=== PATIENT | male | born 1950 | race Caucasian/White ===

== ENCOUNTER 2016-07-19 22:29 | Inpatient (IN) | payer MEDICARE ==
[~2016-07-19] VITALS: Ht 172.7 cm; Wt 76.0 kg
[~2016-07-19 22:29] MED LIST: ALBU.5I NEB; ASPI1TAB69 PO; ATEN25TA PO; ZANTTAB9 PO
[2016-07-19 22:53] VITALS: BP 119/68; PULSE 66; RESP 18; TEMP 98.7; O2SAT 96
[2016-07-19] MEDS ORDERED: SODIUM CHLOR 0.9% 1000 ML INJ 1,000 ML IV SCH (23:07)
[2016-07-19] MEDS ORDERED: SYMB160A INH (23:09)
[2016-07-19] MEDS ORDERED: PRED10 PO (23:09)
[2016-07-19] MEDS ORDERED: CEFD300C PO (23:09)
--- NOTE | 2016-07-19 23:11 | PD ---
HPI Chief Complaint: GI Complaint Time Seen by Provider: 23:02 Travel History International Travel<30 days: No Contact w/Intl Traveler<30days: No Traveled to known affect area: No History of Present Illness HPI Patient 65-year-old male presents emergency Department with generalized abdominal cramping as well as diarrhea for the past 2-3 days. Patient states he was seen by his primary care physician Dr. Acuna last week diagnosed with a COPD exacerbation started on an unknown antibiotic as well as prednisone and Symbicort. He states that his shortness of breath symptoms of completely resolved his left this abdominal cramping as well as diarrhea. Denies bloody or melenous stools. Denies any fever denies any nausea or vomiting. Patient states that he has not had too many diarrhea movements today. PFSH Past Medical History Hx Anticoagulant Therapy: Yes (ASA) Arthritis: No Blood Disorders: No Heart Rhythm Problems: Yes (HX OF PALPITATIONS) Cancer: No Cardiac Catheterization: No Cardiovascular Problems: Yes (HTN) High Cholesterol: Yes Chemotherapy: No Chest Pain: No Congestive Heart Failure: No COPD: Yes Cerebrovascular Accident: No Diabetes: No Endocrine: No Genitourinary: No Headaches: Yes Hypertension: Yes Immune Disorder: No Musculoskeletal: Yes Neurologic: Yes Psychiatric: No Respiratory: Yes (COPD) Immunizations Current: Yes Myocardial Infarction: No Radiation Therapy: No Seizures: No Past Surgical History Abdominal Surgery: Yes (PARTIAL COLON REMOVAL/bladder repair 2005) AICD: No Coronary Artery Bypass Graft: No Eye Surgery: Yes (RIGHT EYE CATARACT AUGUST 2014) Joint Replacement: No Pacemaker: No Other Surgery: No Social History Alcohol Use: No Tobacco Use: No Substance Use: No Allergies-Medications (Allergen,Severity, Reaction): Coded Allergies: Metoprolol (Verified Allergy, Intermediate, 07/19/16) heart palpitations *MDRO Multi-Drug Resistant Organism (Verified Adverse Reaction, Unknown, ) 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 Read complete instructions carefully before using. Zantac 75 (Ranitidine HCl) 75 Mg Tab 75 Mg PO DAILY Take 30 to 60 minutes before eating food or drinking beverages that cause heartburn. Atenolol 25 Mg Tab 25 Mg PO DAILY Aspirin 81 Mg Tabdr 81 Mg PO DAILY Review of Systems Except as stated in HPI: all other systems reviewed are Neg Physical Exam Narrative GENERAL: Well-developed well-nourished no apparent distress. SKIN: No rash no wound. HEAD: Atraumatic. Normocephalic. EYES: Pupils equal and round. No scleral icterus. No injection or drainage. ENT: No nasal bleeding or discharge. Mucous membranes pink and moist. NECK: Trachea midline. No JVD. CARDIOVASCULAR: Regular rate and rhythm. No murmur appreciated. RESPIRATORY: No accessory muscle use. Clear to auscultation. Breath sounds equal bilaterally. GASTROINTESTINAL: Abdomen soft, non-tender, nondistended. Hepatic and splenic margins not palpable. Midline abdominal scar well healed. No rebound no percussive tenderness, so psoas and obturator signs negative. MUSCULOSKELETAL: No obvious deformities. No clubbing. No cyanosis. No edema. NEUROLOGICAL: Awake and alert. No obvious cranial nerve deficits. Motor grossly within normal limits. Normal speech. PSYCHIATRIC: Appropriate mood and affect; insight and judgment normal. Data Data Last Documented VS Vital Signs Date Time Temp Pulse Resp B/P Pulse Ox O2 Delivery O2 Flow Rate FiO2 07/19/16 23:23 76 18 142/78 94 07/19/16 22:53 98.7 Room Air Orders Complete Blood Count With Diff (07/19/16 23:07) Comprehensive Metabolic Panel (07/19/16 23:07) Lipase (07/19/16 23:07) Urinalysis - C+S If Indicated (07/19/16 23:07) Iv Access Insert/Monitor (07/19/16 23:07) Ecg Monitoring (07/19/16 23:07) Oximetry (07/19/16 23:07) Sodium Chlor 0.9% 1000 Ml Inj (Ns 1000 M (07/19/16 23:07) Sodium Chloride 0.9% Flush (Ns Flush) (07/19/16 23:15) C Diff Toxin Pcr (07/19/16 23:44) Ct Abd/Pel W Iv Contrast(Rout) (07/20/16 ) Lactic Acid (07/20/16 00:20) Dicyclomine Inj (Bentyl Inj) (07/20/16 01:00) Ondansetron Inj (Zofran Inj) (07/20/16 01:00) Iohexol 350 Inj (Omnipaque 350 Inj) (07/20/16 01:16) Sodium Chlor 0.9% 1000 Ml Inj (Ns 1000 M (07/20/16 01:45) Admit Order (Ed Use Only) (07/20/16 01:54) Admit To Inpatient (07/20/16 ) Vital Signs (Adult) Q4H (07/20/16 01:53) Activity Oob With Assistance (07/20/16 01:53) Sodium Chlor 0.9% 1000 Ml Inj (Ns 1000 M (07/20/16 01:53) Sodium Chloride 0.9% Flush (Ns Flush) (07/20/16 02:00) Sodium Chloride 0.9% Flush (Ns Flush) (07/20/16 09:00) Acetaminophen (Tylenol) (07/20/16 02:00) Ondansetron Inj (Zofran Inj) (07/20/16 02:00) Magnesium Hydroxide Liq (Milk Of Magnesi (07/20/16 02:00) Basic Metabolic Panel (Bmp) (07/21/16 06:00) Complete Blood Count With Diff (07/21/16 06:00) Scd Bilateral/Knee High CONSTANTINE.BID (07/20/16 01:53) Naloxone Inj (Narcan Inj) (07/20/16 02:00) Inpatient Certification (07/20/16 ) Labs Laboratory Tests Test 07/19/16 07/20/16 23:15 00:28 White Blood Count 19.6 TH/MM3 Red Blood Count 5.28 MIL/MM3 Hemoglobin 16.1 GM/DL Hematocrit 45.8 % Mean Corpuscular Volume 86.7 FL Mean Corpuscular Hemoglobin 30.5 PG Mean Corpuscular Hemoglobin 35.2 % Concent Red Cell Distribution Width 13.5 % Platelet Count 271 TH/MM3 Mean Platelet Volume 9.0 FL Neutrophils (%) (Auto) 83.8 % Lymphocytes (%) (Auto) 10.8 % Monocytes (%) (Auto) 4.6 % Eosinophils (%) (Auto) 0.6 % Basophils (%) (Auto) 0.2 % Neutrophils # (Auto) 16.4 TH/MM3 Lymphocytes # (Auto) 2.1 TH/MM3 Monocytes # (Auto) 0.9 TH/MM3 Eosinophils # (Auto) 0.1 TH/MM3 Basophils # (Auto) 0.0 TH/MM3 CBC Comment DIFF FINAL Differential Comment Sodium Level 136 MEQ/L Potassium Level 5.1 MEQ/L Chloride Level 94 MEQ/L Carbon Dioxide Level 29.9 MEQ/L Anion Gap 12 MEQ/L Blood Urea Nitrogen 19 MG/DL Creatinine 1.30 MG/DL Estimat Glomerular Filtration 55 ML/MIN Rate Random Glucose 104 MG/DL Calcium Level 10.7 MG/DL Total Bilirubin 0.9 MG/DL Aspartate Amino Transf 34 U/L (AST/SGOT) Alanine Aminotransferase 34 U/L (ALT/SGPT) Alkaline Phosphatase 72 U/L Total Protein 8.9 GM/DL Albumin 4.5 GM/DL Lipase 69 U/L Lactic Acid Level 1.6 mmol/L [facility] Medical Decision Making Medical Screen Exam Complete: Yes Emergency Medical Condition: Yes Differential Diagnosis C. difficile colitis, colitis, gastritis, gastric enteritis, small bowel obstruction. Narrative Course 65-year-old male presents emergency Department with diarrhea in the setting of her recent antibiotic prescription. Patient while in the emergency department had one episode of emesis. He has a white count of 19,000 prompting CAT scan ordered. CAT scan pending at current. Patient will be discussed with Dr. Carrington at 0100 to follow-up CAT scan and disposition properly. Patient interventions thus far are Bobby Gary, normal saline 1 L IV. Darrell Saavedra MD Jul 19, 2016 23:11
[2016-07-19 23:23] VITALS: BP 142/78; PULSE 76; RESP 18; O2SAT 94
[2016-07-19 23:35] LABS: AUTOMATED NEUTROPHIL # 16.4 TH/MM3 (1.8-7.7); BASOPHIL % 0.2 % (0.0-2.0); EOSINOPHIL # 0.1 TH/MM3 (0-0.4); EOSINOPHIL % 0.6 % (0.0-4.0); HEMATOCRIT 45.8 % (39.0-51.0); HEMO FLAGS DIFF FINAL; LYMPH % 10.8 % (9.0-44.0); LYMPHOCYTE # 2.1 TH/MM3 (1.0-4.8); MEAN CELL VOLUME 86.7 FL (80.0-100.0); MEAN CORPUSCULAR HEMOGLOBIN 30.5 PG (27.0-34.0); MEAN CORPUSCULAR HGB CONC 35.2 % (32.0-36.0); MONO % 4.6 % (0.0-8.0); NEUT % 83.8 % (16.0-70.0); PLATELET COUNT 271 TH/MM3 (150-450); RED BLOOD COUNT 5.28 MIL/MM3 (4.50-5.90); RED CELL DISTRIBUTION WIDTH 13.5 % (11.6-17.2); WHITE BLOOD COUNT 19.6 TH/MM3 (4.0-11.0)
[2016-07-19] MEDS: SODIUM CHLORIDE 0.9% FLUSH 10 ML FLUSH IV FLUSH PRN (23:36)
[2016-07-20 00:08] LABS: ALKALINE PHOSPHATASE 72 U/L (45-117); ALT (GPT) 34 U/L (12-78); ANION GAP 12 MEQ/L (5-15); AST (GOT) 34 U/L (15-37); BICARBONATE 29.9 MEQ/L (21.0-32.0); BLOOD UREA NITROGEN 19 MG/DL (7-18); CHLORIDE 94 MEQ/L (98-107); GLOMERULAR FILTRATION RATE 55 ML/MIN (>89); SODIUM (NA) 136 MEQ/L (136-145); TOTAL BILIRUBIN ADULT 0.9 MG/DL (0.2-1.0)
[2016-07-20 00:10] LABS: POTASSIUM 5.1 MEQ/L (3.5-5.1)
[2016-07-20] MEDS: SODIUM CHLORIDE 0.9% FLUSH 10 ML FLUSH IV FLUSH PRN (00:57)
[2016-07-20] MEDS ORDERED: ONDANSETRON HCL 4 MG/2 ML VIAL IV PUSH ONE (01:00)
[2016-07-20] MEDS ORDERED: DICYCLOMINE HCL 20 MG/2 ML VIAL IM ONE (01:00)
[2016-07-20] MEDS ORDERED: IOHEXOL 350 MG/ML 10 ML VIAL (for RAD DIAG) IV ONE (01:16)
--- NOTE | 2016-07-20 01:18 | PD ---
Physical Exam Date Seen by Provider: Jul 20, 2016 Time Seen by Provider: 01:16 Narrative The patient is a 65 year-old male was initially evaluated by the previous physician, Dr. Saavedra. Please refer to the initial history, physical, diagnostic evaluation, treatment modality plan. The patient was signed out at [address] of the abdomen and pelvis pending. Data Data Last Documented VS Vital Signs Date Time Temp Pulse Resp B/P Pulse Ox O2 Delivery O2 Flow Rate FiO2 07/19/16 23:23 76 18 142/78 94 07/19/16 22:53 98.7 Room Air Orders Complete Blood Count With Diff (07/19/16 23:07) Comprehensive Metabolic Panel (07/19/16 23:07) Lipase (07/19/16 23:07) Urinalysis - C+S If Indicated (07/19/16 23:07) Iv Access Insert/Monitor (07/19/16 23:07) Ecg Monitoring (07/19/16 23:07) Oximetry (07/19/16 23:07) Sodium Chlor 0.9% 1000 Ml Inj (Ns 1000 M (07/19/16 23:07) Sodium Chloride 0.9% Flush (Ns Flush) (07/19/16 23:15) C Diff Toxin Pcr (07/19/16 23:44) Ct Abd/Pel W Iv Contrast(Rout) (07/20/16 ) Lactic Acid (07/20/16 00:20) Dicyclomine Inj (Bentyl Inj) (07/20/16 01:00) Ondansetron Inj (Zofran Inj) (07/20/16 01:00) Iohexol 350 Inj (Omnipaque 350 Inj) (07/20/16 01:16) Sodium Chlor 0.9% 1000 Ml Inj (Ns 1000 M (07/20/16 01:45) Labs Laboratory Tests Test 07/19/16 07/20/16 23:15 00:28 White Blood Count 19.6 TH/MM3 Red Blood Count 5.28 MIL/MM3 Hemoglobin 16.1 GM/DL Hematocrit 45.8 % Mean Corpuscular Volume 86.7 FL Mean Corpuscular Hemoglobin 30.5 PG Mean Corpuscular Hemoglobin 35.2 % Concent Red Cell Distribution Width 13.5 % Platelet Count 271 TH/MM3 Mean Platelet Volume 9.0 FL Neutrophils (%) (Auto) 83.8 % Lymphocytes (%) (Auto) 10.8 % Monocytes (%) (Auto) 4.6 % Eosinophils (%) (Auto) 0.6 % Basophils (%) (Auto) 0.2 % Neutrophils # (Auto) 16.4 TH/MM3 Lymphocytes # (Auto) 2.1 TH/MM3 Monocytes # (Auto) 0.9 TH/MM3 Eosinophils # (Auto) 0.1 TH/MM3 Basophils # (Auto) 0.0 TH/MM3 CBC Comment DIFF FINAL Differential Comment Sodium Level 136 MEQ/L Potassium Level 5.1 MEQ/L Chloride Level 94 MEQ/L Carbon Dioxide Level 29.9 MEQ/L Anion Gap 12 MEQ/L Blood Urea Nitrogen 19 MG/DL Creatinine 1.30 MG/DL Estimat Glomerular Filtration 55 ML/MIN Rate Random Glucose 104 MG/DL Calcium Level 10.7 MG/DL Total Bilirubin 0.9 MG/DL Aspartate Amino Transf 34 U/L (AST/SGOT) Alanine Aminotransferase 34 U/L (ALT/SGPT) Alkaline Phosphatase 72 U/L Total Protein 8.9 GM/DL Albumin 4.5 GM/DL Lipase 69 U/L Lactic Acid Level 1.6 mmol/L [facility] Medical Record Reviewed: Yes Supervised Visit with HARISH: No Interpretation(s) Laboratory Tests Test 07/19/16 07/20/16 23:15 00:28 White Blood Count 19.6 TH/MM3 Red Blood Count 5.28 MIL/MM3 Hemoglobin 16.1 GM/DL Hematocrit 45.8 % Mean Corpuscular Volume 86.7 FL Mean Corpuscular Hemoglobin 30.5 PG Mean Corpuscular Hemoglobin 35.2 % Concent Red Cell Distribution Width 13.5 % Platelet Count 271 TH/MM3 Mean Platelet Volume 9.0 FL Neutrophils (%) (Auto) 83.8 % Lymphocytes (%) (Auto) 10.8 % Monocytes (%) (Auto) 4.6 % Eosinophils (%) (Auto) 0.6 % Basophils (%) (Auto) 0.2 % Neutrophils # (Auto) 16.4 TH/MM3 Lymphocytes # (Auto) 2.1 TH/MM3 Monocytes # (Auto) 0.9 TH/MM3 Eosinophils # (Auto) 0.1 TH/MM3 Basophils # (Auto) 0.0 TH/MM3 CBC Comment DIFF FINAL Differential Comment Sodium Level 136 MEQ/L Potassium Level 5.1 MEQ/L Chloride Level 94 MEQ/L Carbon Dioxide Level 29.9 MEQ/L Anion Gap 12 MEQ/L Blood Urea Nitrogen 19 MG/DL Creatinine 1.30 MG/DL Estimat Glomerular Filtration 55 ML/MIN Rate Random Glucose 104 MG/DL Calcium Level 10.7 MG/DL Total Bilirubin 0.9 MG/DL Aspartate Amino Transf 34 U/L (AST/SGOT) Alanine Aminotransferase 34 U/L (ALT/SGPT) Alkaline Phosphatase 72 U/L Total Protein 8.9 GM/DL Albumin 4.5 GM/DL Lipase 69 U/L Lactic Acid Level 1.6 mmol/L Differential Diagnosis Differential diagnosis includes colitis, enteritis, infectious diarrhea, inflammatory diarrhea, C. difficile, dehydration, electrolyte abnormality, diverticulitis, abscess. Narrative Course The patient was initially evaluated by the previous physician, Dr. Saavedra. Please refer to the initial history, physical, diagnostic evaluation, and treatment modality plan. The patient was signed out at [address] of the abdomen and pelvis pending after patient's white count was noted to be 19.6 knee complain of diarrhea. The patient does have a history of C. difficile, C. difficile was ordered by the previous physician, Dr. Saavedra. However, the patient had no subsequent diarrhea in the emergency department while Dr. Saavedra was the attending physician. CT of the abdomen and pelvis reveals a ventral hernia with what appears to be a small bowel obstruction with dilated loops of bowel. The patient states his last normal bowel movement was several days ago, he is not passed gas and a day and a half. The patient has had previous abdominal surgery for a fistula, but does not think he has had a small bowel obstruction in the past. The patient's primary physician is Mandy PLEITEZ , he cannot recall the name of the head physician at the group. The patient will be kept nothing by mouth, placed on IV fluids, and admitted to the medical service. If the patient's small bowel obstruction does not reduce on its own with a large ventral hernia, he will need surgical evaluation/intervention. Physician Communication Physician Communication The on-call medical service was paged for admission. I discussed the patient with Dr. Vigil who agrees with admission. Diagnosis Primary Impression: Small bowel obstruction Admitting Information Admitting Physician Requests: Admit Condition: Stable Xavier Carrington MD Jul 20, 2016 01:18
--- NOTE | 2016-07-20 01:27 | RADRPT ---
EXAM DATE/TIME: 07/20/2016 01:05 [facility] COMPARISON: CT ABDOMEN & PELVIS W CONTRAST, August 15, 2014, 20:35. INDICATIONS : Abdomen pain with diarrhea. IV CONTRAST: 95 cc Omnipaque 350 (iohexol) IV ORAL CONTRAST: No oral contrast ingested. RADIATION DOSE: 9.97 CTDIvol (mGy) MEDICAL HISTORY : Cardiovascular disease. Hypertension. Chronic obstructive pulmonary disease. SURGICAL HISTORY : Colon resection. ENCOUNTER: Initial ACUITY: 1 day PAIN SCALE: 10/10 LOCATION: Bilateral abdomen TECHNIQUE: Volumetric scanning of the abdomen and pelvis was performed. Using automated exposure control and ad justment of the mA and/or kV according to patient size, radiation dose was kept as low as reasonably achievable to obtain optimal diagnostic quality images. FINDINGS: LOWER LUNGS: The visualized lower lungs are clear. LIVER: Homogeneous density without lesion. There is no dilation of the biliary tree. No calcified gallston es. SPLEEN: Normal size without lesion. PANCREAS: Within normal limits. KIDNEYS: Normal in size and shape. There is no mass, stone or hydronephrosis. ADRENAL GLANDS: Within normal limits. VASCULAR: There is no aortic aneurysm. BOWEL/MESENTERY: The stomach, small bowel, and colon demonstrate no acute abnormality. There is no free intraperitone al air or fluid. ABDOMINAL WALL: Again there is an anterior midline suprapubic ventral hernia containing a loop of small bowel similar to 2015 with the rectus diastases approximately 2.9 cm across. It contains a loop of small bowel. T he small bowel entering the hernia is dilated and fluid-filled with a number of loops measuring 4.2 c m across. The exiting loop of small bowel is nondilated and non-fluid filled. The contents of the sma ll bowel loop inside the hernia has more stool density concerning for obstruction. There is a tiny am ount of fluid in the dependent portion of the hernia. The total hernia measures 5.0 x 5.1 cm across. RETROPERITONEUM: There is no lymphadenopathy. BLADDER: No wall thickening or mass. Small amount of free fluid in the pelvis REPRODUCTIVE: Within normal limits. INGUINAL: There is no lymphadenopathy or hernia. MUSCULOSKELETAL: Within normal limits for patient age. CONCLUSION: Anterior midline suprapubic ventral hernia similar to 2015 with the rectus diastases approximately 2. 9 cm across. It contains a loop of small bowel. The small bowel proximal to the hernia is dilated an d fluid-filled with a number of loops measuring 4.2 cm across. The exiting loop of small bowel is non dilated and non-fluid filled. The contents of the small bowel loop inside the hernia has more stool d ensity concerning for obstruction. There is a tiny amount of fluid in the dependent portion of the he rnia. The total hernia measures 5.0 x 5.1 cm across. There is not a significant amount of inflammatio n or bowel wall thickening to confirm bowel wall inflammation but the diameters of the small bowel w ithin the peritoneal cavit is diagnostic for an obstructing hernia. Jhonatan Collins MD on July 20, 2016 at 1:20 Board Certified Radiologist. This report was verified electronically.
[2016-07-20] MEDS ORDERED: SODIUM CHLOR 0.9% 1000 ML INJ 1,000 ML IV SCH (01:45)
[2016-07-20] MEDS ORDERED: MAGNESIUM HYDROXIDE SUSP 30 ML CUP PO PRN (02:00)
[2016-07-20] MEDS ORDERED: NALOXONE HCL 0.4 MG/ML AMP IV PRN (02:00)
[2016-07-20] MEDS ORDERED: SODIUM CHLORIDE 0.9% FLUSH 10 ML FLUSH IV FLUSH PRN (02:00)
[2016-07-20] MEDS ORDERED: ACETAMINOPHEN 325 MG TAB PO PRN (02:00)
[2016-07-20] MEDS ORDERED: ONDANSETRON HCL 4 MG/2 ML VIAL IVP PRN (02:00)
--- NOTE | 2016-07-20 02:09 | HHI.HP ---
[facility] Service [facility] Primary Care Physician PRICILLA Michelle Admission Diagnosis small bowel obstruction, abdominal pain Diagnoses: (1) Small bowel obstruction (2) Leukocytosis (3) Acute renal insufficiency (4) Hypercalcemia (5) Diarrhea Chief Complaint: Diarrhea and abdominal pain Travel History International Travel<30 Days: No Contact w/Intl Traveler <30 Da: No Traveled to Known Affected Are: No History of Present Illness Mr. Hernandez is a 65-year-old male with a past medical history of COPD and hypertension who presented to the emergency room on 07/19/2016 complaining of severe abdominal pain and diarrhea. Abdomen/pelvis CT shows obstructing ventral hernia containing a loop of small bowel dilated and fluid-filled. The patient is seen in the emergency room. He states that he received antibiotics for COPD exacerbation last Sunday which made him dizzy. He was only able to take one dose of Levaquin. He followed up on Sunday and was placed on Cefdinir. He states that he has had diarrhea since being started on Cefzil. He describes the diarrhea as loose stools accompanied by abdominal cramping occurring more than 10 times per day; not watery. He reports accompanying nausea without vomiting, chills without fevers. He denies having blood in his stool. Review of Systems Except as stated in HPI: all other systems reviewed are Neg Past Family Social History Past Medical History COPD - symbicort and albuterol nebulizer Hypertension . Past Surgical History Colon Fistula Repair 2005 . Reported Medications Reported Meds & Active Scripts Active Reported Cefdinir 300 Mg Cap 300 Mg PO BID Symbicort Inh (Budesonide/Formoterol Fumarate) 160-4.5 Mcg/Act Aero 1 Puff INH Q12HR Albuterol Neb (Albuterol Sulfate) 2.5 Mg/0.5 Ml Neb 2.5 Mg NEB ONCE Note: The Albuterol Sulfate Inhalation Solution is concentrated and must be diluted. Read complete instructions carefully before using. Zantac 75 (Ranitidine HCl) 75 Mg Tab 75 Mg PO DAILY Take 30 to 60 minutes before eating food or drinking beverages that cause heartburn. Atenolol 25 Mg Tab 25 Mg PO DAILY Aspirin 81 Mg Tabdr 81 Mg PO DAILY . Allergies: Coded Allergies: Metoprolol (Verified Allergy, Intermediate, 07/19/16) heart palpitations *MDRO Multi-Drug Resistant Organism (Verified Allergy, Unknown, 01/31/16) MRSA Active Ordered Medications Current Medications Sodium Chloride (NS 1000 ml Inj) 1,000 ml @ 1,000 mls/hr Q1H IV Last administered on 07/19/16 23:35; Start 07/19/16 at 23:07; Stop 07/20/16 at 00:06 ; Status DC Sodium Chloride (NS Flush) 2 ml UNSCH PRN IV FLUSH FLUSH AFTER USING IV ACCESS Last administered on 07/20/16 00:57; Start 07/19/16 at 23:15; Stop 07/20/16 at 02:03; Status DC Dicyclomine HCl (Bentyl Inj) 20 mg ONCE ONCE IM Last administered on 00:56; Start 07/20/16 at 01:00; Stop 07/20/16 at 01:01; Status DC Ondansetron HCl (Zofran Inj) 4 mg ONCE ONCE IV PUSH Last administered on 00:57; Start 07/20/16 at 01:00; Stop 07/20/16 at 01:01; Status DC Iohexol 95 ml 95 ml STK-MED ONCE IV Last administered on 07/20/16 01:16; Start 07/20/16 at 01:16; Stop 07/20/16 at 01:17; Status DC Sodium Chloride 1,000 ml @ 100 mls/hr Q10H IV ; Start 07/20/16 at 01:45; Stop 07/20/16 at 02:05; Status DC Sodium Chloride (NS 1000 ml Inj) 1,000 ml @ 100 mls/hr Q10H IV ; Start at 01:53 Sodium Chloride (NS Flush) 2 ml UNSCH PRN IV FLUSH FLUSH AFTER USING IV ACCESS ; Start 07/20/16 at 02:00 Sodium Chloride (NS Flush) 2 ml BID IV FLUSH ; Start 07/20/16 at 09:00 Acetaminophen (Tylenol) 650 mg Q4H PRN PO Fever, headache, Pain 1-4; Start at 02:00 Ondansetron HCl (Zofran Inj) 4 mg Q6H PRN IVP NAUSEA OR VOMITING; Start at 02:00 Magnesium Hydroxide (Milk Of Elsy White) 30 ml Q12H PRN PO CONSTIPATION; Start 07/20/16 at 02:00 Naloxone HCl (Narcan Inj) 0.4 mg UNSCH PRN IV SEE LABEL COMMENTS; Start at 02:00 . Family History Mother from breast cancer . Social History Tobacco: Denies Alcohol: Denies . Physical Exam Vital Signs Vital Signs Date Time Temp Pulse Resp B/P Pulse Ox O2 Delivery O2 Flow Rate FiO2 07/19/16 23:23 76 18 142/78 94 07/19/16 22:53 98.7 66 18 119/68 96 Room Air Physical Exam GENERAL: This is a pleasant older male patient, in no apparent distress. SKIN: No rashes, ecchymoses or lesions. Cool and dry. HEAD: Atraumatic. Normocephalic. EYES: No scleral icterus. No injection or drainage. ENT: Nose without bleeding, purulent drainage. NECK: Trachea midline. No JVD or lymphadenopathy. CARDIOVASCULAR: Regular rate and rhythm without murmurs, gallops, or rubs. RESPIRATORY: Breath sounds equal bilaterally. No wheezes or rhonchi. Mild bibasilar crackles; moderate air entry. GASTROINTESTINAL: Right side without bowel sounds; left side with normally active bowel sounds. Abdomen soft, tender on right side of abdomen with palpation, nondistended. No guarding. MUSCULOSKELETAL: Extremities without clubbing, cyanosis, or edema. No calf tenderness. NEUROLOGICAL: Awake and alert. Motor and sensory grossly within normal limits. Normal speech. . Laboratory Laboratory Tests Test 07/19/16 07/20/16 23:15 00:28 White Blood Count 19.6 Red Blood Count 5.28 Hemoglobin 16.1 Hematocrit 45.8 Mean Corpuscular Volume 86.7 Mean Corpuscular Hemoglobin 30.5 Mean Corpuscular Hemoglobin 35.2 Concent Red Cell Distribution Width 13.5 Platelet Count 271 Mean Platelet Volume 9.0 Neutrophils (%) (Auto) 83.8 Lymphocytes (%) (Auto) 10.8 Monocytes (%) (Auto) 4.6 Eosinophils (%) (Auto) 0.6 Basophils (%) (Auto) 0.2 Neutrophils # (Auto) 16.4 Lymphocytes # (Auto) 2.1 Monocytes # (Auto) 0.9 Eosinophils # (Auto) 0.1 Basophils # (Auto) 0.0 CBC Comment DIFF FINAL Differential Comment Sodium Level 136 Potassium Level 5.1 Chloride Level 94 Carbon Dioxide Level 29.9 Anion Gap 12 Blood Urea Nitrogen 19 Creatinine 1.30 Estimat Glomerular Filtration 55 Rate Random Glucose 104 Calcium Level 10.7 Total Bilirubin 0.9 Aspartate Amino Transf 34 (AST/SGOT) Alanine Aminotransferase 34 (ALT/SGPT) Alkaline Phosphatase 72 Total Protein 8.9 Albumin 4.5 Lipase 69 Lactic Acid Level 1.6 Result Diagram: 07/19/16 2315 07/19/16 2315 Imaging Last Impressions Abdomen/Pelvis CT 07/20/16 0000 Signed Impressions: Service Date/Time: , July 20, 2016 01:05 - CONCLUSION: Anterior midline suprapubic ventral hernia similar to 2015 with the rectus diastases approximately 2.9 cm across. It contains a loop of small bowel. The small bowel proximal to the hernia is dilated and fluid-filled with a number of loops measuring 4.2 cm across. The exiting loop of small bowel is nondilated and non-fluid filled. The contents of the small bowel loop inside the hernia has more stool density concerning for obstruction. There is a tiny amount of fluid in the dependent portion of the hernia. The total hernia measures 5.0 x 5.1 cm across. There is not a significant amount of inflammation or bowel wall thickening to confirm bowel wall inflammation but the diameters of the small bowel within the peritoneal cavit is diagnostic for an obstructing hernia. Jhonatan Collins MD . Assessment and Plan Problem List: (1) Small bowel obstruction ICD Code: K56.69 Status: Acute (2) Leukocytosis ICD Code: D72.829 Status: Acute (3) Acute renal insufficiency ICD Code: N28.9 Status: Acute (4) Hypercalcemia ICD Code: E83.52 Status: Acute (5) Diarrhea ICD Code: R19.7 Status: Acute Assessment and Plan Mr. Hernandez is a 65-year-old male with a past medical history of COPD and hypertension who presented to the emergency room on 07/19/2016 complaining of severe abdominal pain and diarrhea. Abdomen/pelvis CT shows obstructing ventral hernia containing a loop of small bowel dilated and fluid-filled. Small bowel obstruction - consult general surgery - clear liquid diet - Morphine 2 mg IV every 3 hours as needed for pain - IV fluid hydration with normal saline at 100 cc per hour - Zofran 4 mg IV push every 6 hours as needed for nausea/vomiting Leukocytosis - likely secondary to prednisone vs stress vs infection - WBC 19.6 with neutrophilia - Repeat CBC in a.m. and follow trends and white blood count Mild renal insufficiency likely secondary to dehydration - IV fluid hydration as above - Repeat BMP in a.m. and follow trends in renal indices - Avoid nephrotoxins Hypercalcemia, mild - Calcium 10.7 on admission - may be secondary to hemoconcentration - Recheck BMP in a.m. and follow trends and calcium levels Diarrhea on antibiotics recently - check stool for c. diff DVT prophylaxis - SCDs Written by Rupal Montilla, acting as scribe for Dr. Vigil on 07/20/16 at 02:03. This note was transcribed by scribe PRICILLA Young. I, Dr. Jose Manuel Vigil personally performed the history, physical exam, and medical decision making; and confirmed the accuracy of the information in the transcribed note. Authenticated by Dr. Jose Manuel Vigil on 07/20/16 at 08:43. . Discussed Condition With ER physician, patient, patient's grandson present at the bedside . Physician Certification 2 Midnight Certification Type: Admission for Inpatient Services Order for Inpatient Services The services are ordered in accordance with Medicare regulations or non- Medicare payer requirements, as applicable. In the case of services not specified as inpatient-only, they are appropriately provided as inpatient services in accordance with the 2-midnight benchmark. Estimated LOS (days): 3 days is the estimated time the patient will need to remain in the hospital, assuming treatment plan goals are met and no additional complications. Post-Hospital Plan: Not yet determined Rupal Montilla Jul 20, 2016 02:09 Daphnie Vigil DO Jul 20, 2016 08:44
[2016-07-20 02:40] VITALS: BP 131/78; PULSE 87; RESP 16; O2SAT 96
[2016-07-20] MEDS: SODIUM CHLOR 0.9% 1000 ML INJ 1,000 ML IV SCH ×3 (02:40→21:30)
[2016-07-20] MEDS: MORPHINE SULFATE 4 MG/ML INJ IV PUSH PRN ×7 (02:44→23:46)
[2016-07-20 03:06] LABS: BLOOD, URINE NEG (NEG); COMMENT (UR) CULT NOT INDICATED; CULTURE IF INDICATED CULT NOT INDICATED; GLUCOSE,URINE NEG (NEG); KETONE, URINE NEG (NEG); MUCUS URINE FEW /lpf (OCC); NITRITE,URINE NEG (NEG); SQUAMOUS EPITHELIAL CELL URINE <1 /hpf (0-5); URINE COLOR YELLOW (YELLW/STRAW)
[2016-07-20 07:11] VITALS: BP 154/82; PULSE 74; RESP 18; TEMP 97.8; O2SAT 95
[2016-07-20] MEDS ORDERED: RESP: ALBUTEROL 1.25 MG/3 ML NEB (PRN) NEB (07:45)
--- NOTE | 2016-07-20 07:45 | HHI.PR ---
Subjective Remarks in no acute distress. has mild abdominal pain and nausea. no emesis. no fever. Objective Vitals Vital Signs Date Time Temp Pulse Resp B/P Pulse Ox O2 Delivery O2 Flow Rate FiO2 07/20/16 07:11 97.8 74 18 154/82 95 07/20/16 03:10 14 07/20/16 02:40 87 16 131/78 96 Room Air 07/19/16 23:23 76 18 142/78 94 07/19/16 22:53 98.7 66 18 119/68 96 Room Air I/O 07/19/16 07/19/16 07/19/16 07/20/16 07/20/16 07/20/16 07:00 15:00 23:00 07:00 15:00 23:00 Intake Total 120 ml Balance 120 ml Intake Oral 120 ml Result Diagram: 07/19/16 2315 07/19/16 2315 Imaging Last Impressions Abdomen/Pelvis CT 07/20/16 0000 Signed Impressions: Service Date/Time: July 01:05 - CONCLUSION: Anterior midline suprapubic ventral hernia similar to 2015 with the rectus diastases approximately 2.9 cm across. It contains a loop of small bowel. The small bowel proximal to the hernia is dilated and fluid-filled with a number of loops measuring 4.2 cm across. The exiting loop of small bowel is nondilated and non-fluid filled. The contents of the small bowel loop inside the hernia has more stool density concerning for obstruction. There is a tiny amount of fluid in the dependent portion of the hernia. The total hernia measures 5.0 x 5.1 cm across. There is not a significant amount of inflammation or bowel wall thickening to confirm bowel wall inflammation but the diameters of the small bowel within the peritoneal cavit is diagnostic for an obstructing hernia. Jhonatan Collins MD Objective Remarks GENERAL: This is a well-nourished, well-developed patient, in no apparent distress. CARDIOVASCULAR: Regular rate and regular rhythm without murmurs, gallops, or rubs. RESPIRATORY: Clear to auscultation. Breath sounds equal bilaterally. No wheezes , rales, or rhonchi. GASTROINTESTINAL: Abdomen soft, non-tender, mildly distended. Normal, active bowel sounds MUSCULOSKELETAL: Extremities without clubbing, cyanosis, or edema. NEURO: Alert & Oriented x4 to person, place, time, situation. Moves all ext x4 Procedures none Medications and IVs Current Medications Sodium Chloride (NS 1000 ml Inj) 1,000 ml @ 1,000 mls/hr Q1H IV Last administered on 07/19/16 23:35; Start 07/19/16 at 23:07; Stop 07/20/16 at 00:06 ; Status DC Sodium Chloride (NS Flush) 2 ml UNSCH PRN IV FLUSH FLUSH AFTER USING IV ACCESS Last administered on 07/20/16 00:57; Start 07/19/16 at 23:15; Stop 07/20/16 at 02:03; Status DC Dicyclomine HCl (Bentyl Inj) 20 mg ONCE ONCE IM Last administered on 00:56; Start 07/20/16 at 01:00; Stop 07/20/16 at 01:01; Status DC Ondansetron HCl (Zofran Inj) 4 mg ONCE ONCE IV PUSH Last administered on 00:57; Start 07/20/16 at 01:00; Stop 07/20/16 at 01:01; Status DC Iohexol 95 ml 95 ml STK-MED ONCE IV Last administered on 07/20/16 01:16; Start 07/20/16 at 01:16; Stop 07/20/16 at 01:17; Status DC Sodium Chloride 1,000 ml @ 100 mls/hr Q10H IV ; Start 07/20/16 at 01:45; Stop 07/20/16 at 02:05; Status DC Sodium Chloride (NS 1000 ml Inj) 1,000 ml @ 100 mls/hr Q10H IV Last administered on 07/20/16 02:40; Start 07/20/16 at 01:53 Sodium Chloride (NS Flush) 2 ml UNSCH PRN IV FLUSH FLUSH AFTER USING IV ACCESS ; Start 07/20/16 at 02:00 Sodium Chloride (NS Flush) 2 ml BID IV FLUSH ; Start 07/20/16 at 09:00 Acetaminophen (Tylenol) 650 mg Q4H PRN PO Fever, headache, Pain 1-4; Start at 02:00 Ondansetron HCl (Zofran Inj) 4 mg Q6H PRN IVP NAUSEA OR VOMITING; Start at 02:00 Magnesium Hydroxide (Milk Of Magnesia Liq) 30 ml Q12H PRN PO CONSTIPATION; Start 07/20/16 at 02:00 Naloxone HCl (Narcan Inj) 0.4 mg UNSCH PRN IV SEE LABEL COMMENTS; Start at 02:00 Morphine Sulfate (Morphine Inj) 2 mg Q3H PRN IV PUSH PAIN SCALE 5 TO 10 Last administered on 07/20/16t 06:23; Start 07/20/16 at 02:45 A/P Assessment and Plan Small bowel obstruction - consulted general surgery - clear liquid diet -continue IV fluid, pain control and antiemetics as needed. Leukocytosis - likely secondary to prednisone vs stress vs infection - WBC 19.6 with neutrophilia - Repeat CBC in a.m. and follow trends and white blood count -monitor temps Mild renal insufficiency likely secondary to dehydration - IV fluid hydration as above - Repeat BMP in a.m. and follow trends in renal indices - Avoid nephrotoxins Hypercalcemia, mild - Calcium 10.7 on admission - may be secondary to hemoconcentration - Recheck BMP in a.m. and follow trends and calcium levels Diarrhea on antibiotics recently - check stool for c. diff COPD with no exacerbation -resume symbicort- albuterol as needed hypertension - monitor the BP trend -resume atenolol soon. DVT prophylaxis - SCDs Eva Devine MD Jul 20, 2016 07:45
[2016-07-20] MEDS: BUDESONIDE-FORMOTEROL 160/4.5 MCG INHALER INH SCH ×2 (09:00→21:30)
[2016-07-20] MEDS: SODIUM CHLORIDE 0.9% FLUSH 10 ML FLUSH IV FLUSH SCH ×2 (09:00→21:00)
[2016-07-20 09:08] LABS: BICARBONATE 29.6 MEQ/L (21.0-32.0); POTASSIUM 4.6 MEQ/L (3.5-5.1)
--- NOTE | 2016-07-20 10:02 | PD.CONS ---
HPI Service General Surgery Consult Requested By [facility] Reason for Consult ventral hernia with obstruction Primary Care Physician PRICILLA Michelle History of Present Illness The patient is a 65-year-old male with a history of low anterior resection and takedown of colovesical [place] [address] Rolon who presents with 2-3 days of fairly severe crampy mid abdominal pain associated with liquid stools up until yesterday when he stopped stooling or having flatus. He has had similar type pain off and on in the past but less severe and he thinks it is when he eats lower fiber diet. He has had nausea but no vomiting. The patient was recently diagnosed with a COPD exacerbation and placed on appropriate medications. He feels his diarrhea may have been related to antibiotic administration. On evaluation in the emergency department he was noted to have leukocytosis and therefore a CT abdomen and pelvis was performed which revealed a suprapubic midline ventral hernia with small bowel present. There was dilation of proximal small bowel and stomach and decompression of distal small bowel. There is not a lot of inflammation or bowel wall thickening in the hernia. A CT abdomen and pelvis in 2014 also showed this suprapubic ventral hernia with small bowel present. Review of Systems Constitutional: DENIES: Fever, Chills Eyes: DENIES: Eye inflammation, Eye pain Respiratory: COMPLAINS OF: Cough, Wheezing Cardiovascular: DENIES: Chest pain, Palpitations Gastrointestinal: COMPLAINS OF: Abdominal pain, Diarrhea Integumentary: DENIES: Pruritus, Rash Neurologic: DENIES: Headache, Localized weakness Past Family Social History Past Medical History Hypertension COPD History of diverticulitis Past Surgical History LAR with colovesical fistula [place] [address] Rolon Reported Medications Reported Meds & Active Scripts Active Reported Cefdinir 300 Mg Cap 300 Mg PO BID Prednisone 10 Mg Tab 10 Mg PO DAILY Symbicort Inh (Budesonide/Formoterol Fumarate) 160-4.5 Mcg/Act Aero 1 Puff INH Q12HR Albuterol Neb (Albuterol Sulfate) 2.5 Mg/0.5 Ml Neb 2.5 Mg NEB ONCE Note: The Albuterol Sulfate Inhalation Solution is concentrated and must be diluted. Read complete instructions carefully before using. Zantac 75 (Ranitidine HCl) 75 Mg Tab 75 Mg PO DAILY Take 30 to 60 minutes before eating food or drinking beverages that cause heartburn. Atenolol 25 Mg Tab 25 Mg PO DAILY Aspirin 81 Mg Tabdr 81 Mg PO DAILY Allergies: Coded Allergies: Metoprolol (Verified Allergy, Intermediate, 07/19/16) heart palpitations *MDRO Multi-Drug Resistant Organism (Verified Adverse Reaction, Unknown, ) MRSA (leg wound) - 09/2004 Active Ordered Medications Current Medications Medications (Trade) Dose Ordered Sig/Luis Route Start Time Stop Time Status Last Admin (NS 1000 ml Inj) 1,000 ml @ 100 mls/hr Q10H IV 07/20/16 01:53 07/20/16 02:40 (NS Flush) 2 ml UNSCH PRN IV FLUSH 07/20/16 02:00 (NS Flush) 2 ml BID IV FLUSH 07/20/16 09:00 (Tylenol) 650 mg Q4H PRN PO 07/20/16 02:00 (Zofran Inj) 4 mg Q6H PRN IVP 07/20/16 02:00 (Milk Of Magnesia Liq) 30 ml Q12H PRN PO 07/20/16 02:00 (Narcan Inj) 0.4 mg UNSCH PRN IV 07/20/16 02:00 (Morphine Inj) 2 mg Q3H PRN IV PUSH 07/20/16 02:45 07/20/16 09:34 (Symbicort 160-4.5 Inh) 1 puff Q12HR INH 07/20/16 09:00 Family History Noncontributory Social History No alcohol tobacco or drug use. Physical Exam Vital Signs Vital Signs Date Time Temp Pulse Resp B/P Pulse Ox O2 Delivery O2 Flow Rate FiO2 07/20/16 07:11 97.8 74 18 154/82 95 07/20/16 03:10 14 07/20/16 02:40 87 16 131/78 96 Room Air 07/19/16 23:23 76 18 142/78 94 07/19/16 22:53 98.7 66 18 119/68 96 Room Air Physical Exam GENERAL: Awake and alert. No acute distress. Cooperative. HEAD: Normocephalic. Atraumatic. EYES: Pupils equal round and reactive to light bilaterally. No scleral icterus. ENT: Poor dentition CHEST: Lungs clear to auscultation bilaterally with no wheezing or rhonchi. No respiratory distress. CARDIOVASCULAR: Regular rate and rhythm. ABDOMEN: Well-healed midline laparotomy scar. Round and somewhat distended. Moderate tenderness to palpation especially just above the umbilicus. There is no rebound or guarding. In the suprapubic area in the midline there is a hard firm bulge somewhat tender which I'm unable to reduce. EXTREMITIES: No cyanosis or edema. SKIN: Warm, dry, nonjaundiced. Laboratory Laboratory Tests Test 07/19/16 07/20/16 07/20/16 07/20/16 23:15 00:28 02:37 08:37 White Blood Count 19.6 Red Blood Count 5.28 Hemoglobin 16.1 Hematocrit 45.8 Mean Corpuscular Volume 86.7 Mean Corpuscular Hemoglobin 30.5 Mean Corpuscular Hemoglobin 35.2 Concent Red Cell Distribution Width 13.5 Platelet Count 271 Mean Platelet Volume 9.0 Neutrophils (%) (Auto) 83.8 Lymphocytes (%) (Auto) 10.8 Monocytes (%) (Auto) 4.6 Eosinophils (%) (Auto) 0.6 Basophils (%) (Auto) 0.2 Neutrophils # (Auto) 16.4 Lymphocytes # (Auto) 2.1 Monocytes # (Auto) 0.9 Eosinophils # (Auto) 0.1 Basophils # (Auto) 0.0 CBC Comment DIFF FINAL Differential Comment Sodium Level 136 138 Potassium Level 5.1 4.6 Chloride Level 94 99 Carbon Dioxide Level 29.9 29.6 Anion Gap 12 9 Blood Urea Nitrogen 19 20 Creatinine 1.30 1.21 Estimat Glomerular Filtration 55 60 Rate Random Glucose 104 108 Calcium Level 10.7 9.7 Total Bilirubin 0.9 Aspartate Amino Transf 34 (AST/SGOT) Alanine Aminotransferase 34 (ALT/SGPT) Alkaline Phosphatase 72 Total Protein 8.9 Albumin 4.5 Lipase 69 Lactic Acid Level 1.6 Urine Color YELLOW Urine Turbidity HAZY Urine pH 7.0 Urine Specific Mcgraw 1.041 Urine Protein NEG Urine Glucose (UA) NEG Urine Ketones NEG Urine Occult Blood NEG Urine Nitrite NEG Urine Bilirubin NEG Urine Urobilinogen LESS THAN 2.0 Urine Leukocyte Esterase NEG Urine RBC 2 Urine WBC 2 Urine Squamous Epithelial <1 Cells Urine Mucus FEW Microscopic Urinalysis Comment CULT NOT INDICATED Result Diagram: 07/19/16 2315 07/20/16 0837 Imaging Last Impressions Abdomen/Pelvis CT 07/20/16 0000 Signed Impressions: Service Date/Time: July 01:05 - CONCLUSION: Anterior midline suprapubic ventral hernia similar to 2015 with the rectus diastases approximately 2.9 cm across. It contains a loop of small bowel. The small bowel proximal to the hernia is dilated and fluid-filled with a number of loops measuring 4.2 cm across. The exiting loop of small bowel is nondilated and non-fluid filled. The contents of the small bowel loop inside the hernia has more stool density concerning for obstruction. There is a tiny amount of fluid in the dependent portion of the hernia. The total hernia measures 5.0 x 5.1 cm across. There is not a significant amount of inflammation or bowel wall thickening to confirm bowel wall inflammation but the diameters of the small bowel within the peritoneal cavit is diagnostic for an obstructing hernia. Jhonatan Collins MD Assessment and Plan Assessment and Plan 65-year-old male with history of LAR with chronically incarcerated suprapubic ventral hernia now causing at least a high-grade partial small bowel obstruction. I do not think based on his evaluation that he has compromised bowel and requires emergent surgery. I have ordered him to be nothing by mouth and an NG tube placed. I will try to decompress his proximal bowel and see if he can get by nonoperatively and then consider elective hernia repair in the future. If he remains obstructed and/or worsens clinically he may require operative intervention for reduction and repair of the ventral hernia. Wade Butcher MD Jul 20, 2016 10:02
[2016-07-20 10:32] LABS: C. DIFF EPI 027 PRESUMPTIVE NEGATIVE (NEGATIVE); C. DIFF TOXIN PCR NEGATIVE (NEGATIVE)
[2016-07-20 12:35] VITALS: BP 152/74; PULSE 66; RESP 16; TEMP 97.7; O2SAT 95
[2016-07-20 16:25] VITALS: BP 159/82; PULSE 81; RESP 20; TEMP 98; O2SAT 95
[2016-07-20 20:00] VITALS: BP_SYST 173; BP_SYST 176; BP_DIAS 79; BP_DIAS 84; PULSE 74; PULSE 82; RESP 20; RESP 21; TEMP 95.7; TEMP 97.7; O2SAT 94; O2SAT 98
[2016-07-21] VITALS: BP 149/79; PULSE 82; RESP 16; TEMP 96.2; O2SAT 94
[2016-07-21 04:29] VITALS: BP 174/84; PULSE 80; RESP 16; TEMP 96.3; O2SAT 94
[2016-07-21 06:02] LABS: AUTOMATED NEUTROPHIL # 13.2 TH/MM3 (1.8-7.7); BASOPHIL # 0.1 TH/MM3 (0-0.2); BASOPHIL % 0.6 % (0.0-2.0); EOSINOPHIL # 0.2 TH/MM3 (0-0.4); EOSINOPHIL % 1.4 % (0.0-4.0); HEMATOCRIT 41.8 % (39.0-51.0); HEMO FLAGS DIFF FINAL; LYMPH % 9.8 % (9.0-44.0); LYMPHOCYTE # 1.6 TH/MM3 (1.0-4.8); MEAN CELL VOLUME 88.6 FL (80.0-100.0); MEAN CORPUSCULAR HGB CONC 32.7 % (32.0-36.0); MONO % 6.9 % (0.0-8.0); NEUT % 81.3 % (16.0-70.0); PLATELET COUNT 206 TH/MM3 (150-450); RED BLOOD COUNT 4.72 MIL/MM3 (4.50-5.90); RED CELL DISTRIBUTION WIDTH 13.7 % (11.6-17.2); WHITE BLOOD COUNT 16.2 TH/MM3 (4.0-11.0)
[2016-07-21 06:32] LABS: BICARBONATE 31.2 MEQ/L (21.0-32.0)
[2016-07-21] MEDS ORDERED: ENALAPRILAT 1.25 MG/ML VIAL IV PUSH PRN (07:45)
--- NOTE | 2016-07-21 07:45 | HHI.PR ---
Subjective Remarks in no acute distress. abdominal pain is slightly better. has some nausea. no BM. afebrile. d/w the RN. Objective Vitals Vital Signs Date Time Temp Pulse Resp B/P Pulse Ox O2 Delivery O2 Flow Rate FiO2 07/21/16 04:29 96.3 80 16 174/84 94 07/21/16 00:00 96.2 82 16 149/79 94 07/20/16 20:00 95.7 74 21 176/84 94 07/20/16 16:25 98.0 81 20 159/82 95 07/20/16 12:35 97.7 66 16 152/74 95 I/O 07/20/16 07/20/16 07/20/16 07/21/16 07/21/16 07/21/16 07:00 15:00 23:00 07:00 15:00 23:00 Intake Total 120 ml 1118 ml Output Total 250 ml 25 ml 400 ml Balance 120 ml 868 ml -25 ml -400 ml Intake Oral 120 ml IV Total 1118 ml Output Urine Total 400 ml Gastric Drainage Total 250 ml 25 ml # Bowel Movements 0 Result Diagram: 07/21/16 0516 07/21/16 0516 Imaging Last Impressions Abdomen/Pelvis CT 07/20/16 0000 Signed Impressions: Service Date/Time: July 01:05 - CONCLUSION: Anterior midline suprapubic ventral hernia similar to 2015 with the rectus diastases approximately 2.9 cm across. It contains a loop of small bowel. The small bowel proximal to the hernia is dilated and fluid-filled with a number of loops measuring 4.2 cm across. The exiting loop of small bowel is nondilated and non-fluid filled. The contents of the small bowel loop inside the hernia has more stool density concerning for obstruction. There is a tiny amount of fluid in the dependent portion of the hernia. The total hernia measures 5.0 x 5.1 cm across. There is not a significant amount of inflammation or bowel wall thickening to confirm bowel wall inflammation but the diameters of the small bowel within the peritoneal cavit is diagnostic for an obstructing hernia. Jhonatan Collins MD Objective Remarks GENERAL: This is a well-nourished, well-developed patient, in no apparent respiratory distress- NG tube in place. CARDIOVASCULAR: Regular rate and regular rhythm without murmurs, gallops, or rubs. RESPIRATORY: Clear to auscultation. Breath sounds equal bilaterally. No wheezes , rales, or rhonchi. GASTROINTESTINAL: Abdomen soft, non-tender, distended. active bowel sounds MUSCULOSKELETAL: Extremities without clubbing, cyanosis, or edema. NEURO: Alert & Oriented x4 to person, place, time, situation. Moves all ext x4 Procedures none Medications and IVs Current Medications Sodium Chloride (NS 1000 ml Inj) 1,000 ml @ 1,000 mls/hr Q1H IV Last administered on 07/19/16 23:35; Start 07/19/16 at 23:07; Stop 07/20/16 at 00:06 ; Status DC Sodium Chloride (NS Flush) 2 ml UNSCH PRN IV FLUSH FLUSH AFTER USING IV ACCESS Last administered on 07/20/16 00:57; Start 07/19/16 at 23:15; Stop 07/20/16 at 02:03; Status DC Dicyclomine HCl (Bentyl Inj) 20 mg ONCE ONCE IM Last administered on 00:56; Start 07/20/16 at 01:00; Stop 07/20/16 at 01:01; Status DC Ondansetron HCl (Zofran Inj) 4 mg ONCE ONCE IV PUSH Last administered on 00:57; Start 07/20/16 at 01:00; Stop 07/20/16 at 01:01; Status DC Iohexol 95 ml 95 ml STK-MED ONCE IV Last administered on 07/20/16 01:16; Start 07/20/16 at 01:16; Stop 07/20/16 at 01:17; Status DC Sodium Chloride 1,000 ml @ 100 mls/hr Q10H IV ; Start 07/20/16 at 01:45; Stop 07/20/16 at 02:05; Status DC Sodium Chloride (NS 1000 ml Inj) 1,000 ml @ 100 mls/hr Q10H IV Last administered on 07/20/16 21:30; Start 07/20/16 at 01:53 Sodium Chloride (NS Flush) 2 ml UNSCH PRN IV FLUSH FLUSH AFTER USING IV ACCESS ; Start 07/20/16 at 02:00 Sodium Chloride (NS Flush) 2 ml BID IV FLUSH ; Start 07/20/16 at 09:00 Acetaminophen (Tylenol) 650 mg Q4H PRN PO Fever, headache, Pain 1-4; Start at 02:00 Ondansetron HCl (Zofran Inj) 4 mg Q6H PRN IVP NAUSEA OR VOMITING; Start at 02:00 Magnesium Hydroxide (Milk Of Magnchristopher Liq) 30 ml Q12H PRN PO CONSTIPATION; Start 07/20/16 at 02:00 Naloxone HCl (Narcan Inj) 0.4 mg UNSCH PRN IV SEE LABEL COMMENTS; Start at 02:00 Morphine Sulfate (Morphine Inj) 2 mg Q3H PRN IV PUSH PAIN SCALE 5 TO 10 Last administered on 07/20/16 23:46; Start 07/20/16 at 02:45 Albuterol Sulfate (Albuterol Neb) 1.25 mg Q6HR NEB PRN NEB SHORTNESS OF BREATH ; Start 07/20/16 at 07:45 Budesonide/ Formoterol Fumarate (Symbicort 160-4.5 Inh) 1 puff Q12HR INH Last administered on 07/20/16 21:30; Start 07/20/16 at 09:00 A/P Assessment and Plan Small bowel obstruction - consulted general surgery - NPO and continue with NG tube. -abd. XR today pending. -continue IV fluid, pain control and antiemetics as needed. Leukocytosis - likely secondary to prednisone vs stress vs infection - trending down. -will monitor -monitor temps Mild renal insufficiency likely secondary to dehydration-improved. - IV fluid hydration as above - Avoid nephrotoxins Hypercalcemia, mild-resolved. Diarrhea on antibiotics recently - stool negative for C-diff. COPD with no exacerbation -resume symbicort- albuterol as needed hypertension - monitor the BP trend -vasotec prn. -resume home meds when able to take PO. DVT prophylaxis - Eva Daugherty MD Jul 21, 2016 07:44
[2016-07-21] MEDS: MORPHINE SULFATE 4 MG/ML INJ IV PUSH PRN ×2 (07:59→19:59)
[2016-07-21] MEDS: SODIUM CHLOR 0.9% 1000 ML INJ 1,000 ML IV SCH ×2 (08:00→18:54)
[2016-07-21] MEDS: BUDESONIDE-FORMOTEROL 160/4.5 MCG INHALER INH SCH ×2 (08:01→20:18)
--- NOTE | 2016-07-21 08:14 | RADRPT ---
EXAM DATE/TIME: 07/21/2016 07:28 [facility] COMPARISON: CT ABDOMEN & PELVIS W CONTRAST, July 20, 2016, 1:05. INDICATIONS : Abdomen pain, diarrhea. MEDICAL HISTORY : None. SURGICAL HISTORY : Colon resection. ENCOUNTER: Subsequent ACUITY: 3 days PAIN SCORE: 3/10 LOCATION: Bilateral abdomen FINDINGS: Supine and upright views of the abdomen were performed. Significant small bowel distention with air- fluid levels are noted. Small amount of gas and stool seen in the colon. There is no evidence of free air. Nasogastric tube is identified in the distal esophagus. CONCLUSION: Small bowel ileus characteristic of a mechanical obstruction as demonstrated by CT. No significant change in degree of distention compared to CT. Nasogastric tube in the distal esophagus. Chaka Pimentel MD on July 21, 2016 at 8:10 Board Certified Radiologist. This report was verified electronically.
[2016-07-21 08:30] VITALS: BP 161/87; PULSE 73; RESP 20; TEMP 97.7; O2SAT 97
[2016-07-21] MEDS: SODIUM CHLORIDE 0.9% FLUSH 10 ML FLUSH IV FLUSH SCH ×2 (09:00→20:00)
[2016-07-21 12:00] VITALS: BP 158/83; PULSE 79; RESP 20; TEMP 96.3; O2SAT 96
[2016-07-21] MEDS ORDERED: PHENOL 1.4% SOLN 180 ML BTL OROPHARYNG PRN (12:30)
--- NOTE | 2016-07-21 12:31 | HHI.PR ---
Subjective Subjective Notes Pain slightly better. Ng only with about 400cc out, was repositioned this am. Objective Vitals/I&O Vital Signs Date Time Temp Pulse Resp B/P Pulse Ox O2 Delivery O2 Flow Rate FiO2 07/21/16 08:30 97.7 73 20 161/87 97 07/20/16 02:40 Room Air Labs Laboratory Tests Test 07/21/16 05:16 White Blood Count 16.2 Red Blood Count 4.72 Hemoglobin 13.7 Hematocrit 41.8 Mean Corpuscular Volume 88.6 Mean Corpuscular Hemoglobin 29.0 Mean Corpuscular Hemoglobin 32.7 Concent Red Cell Distribution Width 13.7 Platelet Count 206 Mean Platelet Volume 8.7 Neutrophils (%) (Auto) 81.3 Lymphocytes (%) (Auto) 9.8 Monocytes (%) (Auto) 6.9 Eosinophils (%) (Auto) 1.4 Basophils (%) (Auto) 0.6 Neutrophils # (Auto) 13.2 Lymphocytes # (Auto) 1.6 Monocytes # (Auto) 1.1 Eosinophils # (Auto) 0.2 Basophils # (Auto) 0.1 CBC Comment DIFF FINAL Differential Comment Sodium Level 139 Potassium Level 4.0 Chloride Level 103 Carbon Dioxide Level 31.2 Anion Gap 5 Blood Urea Nitrogen 18 Creatinine 1.02 Estimat Glomerular Filtration 73 Rate Random Glucose 100 Calcium Level 8.8 Radiology Last Impressions Abdomen/Pelvis CT 07/20/16 0000 Signed Impressions: Service Date/Time: July 01:05 - CONCLUSION: Anterior midline suprapubic ventral hernia similar to 2015 with the rectus diastases approximately 2.9 cm across. It contains a loop of small bowel. The small bowel proximal to the hernia is dilated and fluid-filled with a number of loops measuring 4.2 cm across. The exiting loop of small bowel is nondilated and non-fluid filled. The contents of the small bowel loop inside the hernia has more stool density concerning for obstruction. There is a tiny amount of fluid in the dependent portion of the hernia. The total hernia measures 5.0 x 5.1 cm across. There is not a significant amount of inflammation or bowel wall thickening to confirm bowel wall inflammation but the diameters of the small bowel within the peritoneal cavit is diagnostic for an obstructing hernia. Jhonatan Collins MD Narrative Exam NAD Abd: soft, mod LUQ ttp, ng 400cc bilious output, suprapubic hernia nonreducible A/P Assessment and Plan 65 yo M chronically incarcerated suprapubic hernia now causing obstruction. X rays show persistent dilated loops and air fluid levels. I'm not sure why more is not coming out of NG, so we'll check another KUB for placement. Continue attempted non op management. Dr. Martinez will be rounding this weekend. CBC in am. HadleyWade MD Jul 21, 2016 12:31
--- NOTE | 2016-07-21 14:01 | RADRPT ---
EXAM DATE/TIME: 07/21/2016 13:24 [facility] COMPARISON: ABDOMEN FLAT & UPRIGHT, July 21, 2016, 7:28. INDICATIONS : Confirm NG tube placement. MEDICAL HISTORY : Cardiovascular disease. Hypertension. Chronic obstructive pulmonary disease SURGICAL HISTORY : Colon resection. ENCOUNTER: Subsequent ACUITY: 2 days PAIN SCORE: 0/10 LOCATION: Bilateral Abdomen. FINDINGS: NG tube is present with tip in the stomach. No definite free air is identified for technique. There a re a few prominent loops of small bowel and overall slightly improved since the prior examination. CONCLUSION: Slight improvement in the distended loops of small bowel since the prior study. Chiquita Siegel MD on July 21, 2016 at 13:49 Board Certified Radiologist. This report was verified electronically.
[2016-07-21 16:00] VITALS: BP 182/89; PULSE 77; RESP 22; TEMP 95.9; O2SAT 94
[2016-07-21 20:00] VITALS: BP 154/79; PULSE 77; RESP 18; TEMP 96.5; O2SAT 95
[2016-07-22] VITALS (7 sets, daily range): BP systolic 156–179; BP diastolic 81–88; PULSE 77–92; RESP 17–19; TEMP 96.8–98.4; O2SAT 95–100
[2016-07-22] MEDS: SODIUM CHLOR 0.9% 1000 ML INJ 1,000 ML IV SCH ×3 (03:57→21:38)
[2016-07-22] MEDS: MORPHINE SULFATE 4 MG/ML INJ IV PUSH PRN ×2 (05:37→18:46)
[2016-07-22 06:10] LABS: AUTOMATED NEUTROPHIL # 12.8 TH/MM3 (1.8-7.7); BASOPHIL # 0.1 TH/MM3 (0-0.2); BASOPHIL % 0.3 % (0.0-2.0); EOSINOPHIL # 0.4 TH/MM3 (0-0.4); EOSINOPHIL % 2.6 % (0.0-4.0); HEMATOCRIT 39.9 % (39.0-51.0); HEMO FLAGS DIFF FINAL; LYMPH % 9.8 % (9.0-44.0); LYMPHOCYTE # 1.6 TH/MM3 (1.0-4.8); MEAN CELL VOLUME 90.6 FL (80.0-100.0); MEAN CORPUSCULAR HEMOGLOBIN 29.9 PG (27.0-34.0); MEAN CORPUSCULAR HGB CONC 33.1 % (32.0-36.0); MONO % 8.4 % (0.0-8.0); NEUT % 78.9 % (16.0-70.0); PLATELET COUNT 146 TH/MM3 (150-450); RED BLOOD COUNT 4.41 MIL/MM3 (4.50-5.90); RED CELL DISTRIBUTION WIDTH 13.7 % (11.6-17.2); WHITE BLOOD COUNT 16.2 TH/MM3 (4.0-11.0)
[2016-07-22] MEDS: SODIUM CHLORIDE 0.9% FLUSH 10 ML FLUSH IV FLUSH SCH ×2 (08:49→21:00)
[2016-07-22] MEDS: BUDESONIDE-FORMOTEROL 160/4.5 MCG INHALER INH SCH ×2 (08:50→21:38)
--- NOTE | 2016-07-22 09:32 | HHI.PR ---
Subjective Remarks in no acute distress. abdominal pain is slightly better today. no nausea or vomiting. no BM. NG tube in place. Objective Vitals Vital Signs Date Time Temp Pulse Resp B/P Pulse Ox O2 Delivery O2 Flow Rate FiO2 07/22/16 08:00 97.4 77 19 167/83 95 07/22/16 00:00 96.8 85 18 156/87 96 07/21/16 20:00 96.5 77 18 154/79 95 07/21/16 16:00 95.9 77 22 182/89 94 07/21/16 12:00 96.3 79 20 158/83 96 I/O 07/21/16 07/21/16 07/21/16 07/22/16 07/22/16 07/22/16 07:00 15:00 23:00 07:00 15:00 23:00 Intake Total 847 ml 0 ml 0 ml 0 ml Output Total 400 ml 50 ml 250 ml 1200 ml Balance -400 ml 797 ml -250 ml -1200 ml 0 ml Intake Oral 0 ml 0 ml 0 ml IV Total 847 ml Output Urine Total 400 ml 250 ml 450 ml Gastric Drainage Total 50 ml 750 ml # Bowel Movements 0 Result Diagram: 07/22/16 0421 07/21/16 0516 Imaging Last Impressions Abdomen X-Ray 07/21/16 0600 Signed Impressions: Service Date/Time: Thursday, July 21, 2016 07:28 - CONCLUSION: Small bowel ileus characteristic of a mechanical obstruction as demonstrated by CT. No significant change in degree of distention compared to CT. Nasogastric tube in the distal esophagus. Chaka Pimentel MD Abdomen/Pelvis CT 07/20/16 0000 Signed Impressions: Service Date/Time: July 01:05 - CONCLUSION: Anterior midline suprapubic ventral hernia similar to 2015 with the rectus diastases approximately 2.9 cm across. It contains a loop of small bowel. The small bowel proximal to the hernia is dilated and fluid-filled with a number of loops measuring 4.2 cm across. The exiting loop of small bowel is nondilated and non-fluid filled. The contents of the small bowel loop inside the hernia has more stool density concerning for obstruction. There is a tiny amount of fluid in the dependent portion of the hernia. The total hernia measures 5.0 x 5.1 cm across. There is not a significant amount of inflammation or bowel wall thickening to confirm bowel wall inflammation but the diameters of the small bowel within the peritoneal cavit is diagnostic for an obstructing hernia. Jhonatan Collins MD Objective Remarks GENERAL: This is a well-nourished, well-developed patient, in no apparent respiratory distress- NG tube in place. CARDIOVASCULAR: Regular rate and regular rhythm without murmurs, gallops, or rubs. RESPIRATORY: Clear to auscultation. Breath sounds equal bilaterally. No wheezes , rales, or rhonchi. GASTROINTESTINAL: Abdomen soft, non-tender, distended. active bowel sounds MUSCULOSKELETAL: Extremities without clubbing, cyanosis, or edema. NEURO: Alert & Oriented x4 to person, place, time, situation. Moves all ext x4 Procedures none Medications and IVs Current Medications Sodium Chloride (NS 1000 ml Inj) 1,000 ml @ 1,000 mls/hr Q1H IV Last administered on 07/19/16 23:35; Start 07/19/16 at 23:07; Stop 07/20/16 at 00:06 ; Status DC Sodium Chloride (NS Flush) 2 ml UNSCH PRN IV FLUSH FLUSH AFTER USING IV ACCESS Last administered on 07/20/16 00:57; Start 07/19/16 at 23:15; Stop 07/20/16 at 02:03; Status DC Dicyclomine HCl (Bentyl Inj) 20 mg ONCE ONCE IM Last administered on 00:56; Start 07/20/16 at 01:00; Stop 07/20/16 at 01:01; Status DC Ondansetron HCl (Zofran Inj) 4 mg ONCE ONCE IV PUSH Last administered on 00:57; Start 07/20/16 at 01:00; Stop 07/20/16 at 01:01; Status DC Iohexol 95 ml 95 ml STK-MED ONCE IV Last administered on 07/20/16 01:16; Start 07/20/16 at 01:16; Stop 07/20/16 at 01:17; Status DC Sodium Chloride 1,000 ml @ 100 mls/hr Q10H IV ; Start 07/20/16 at 01:45; Stop 07/20/16 at 02:05; Status DC Sodium Chloride (NS 1000 ml Inj) 1,000 ml @ 100 mls/hr Q10H IV Last administered on 07/22/16 03:57; Start 07/20/16 at 01:53 Sodium Chloride (NS Flush) 2 ml UNSCH PRN IV FLUSH FLUSH AFTER USING IV ACCESS ; Start 07/20/16 at 02:00 Sodium Chloride (NS Flush) 2 ml BID IV FLUSH Last administered on 07/21/16 20: 00; Start 07/20/16 at 09:00 Acetaminophen (Tylenol) 650 mg Q4H PRN PO Fever, headache, Pain 1-4; Start at 02:00 Ondansetron HCl (Zofran Inj) 4 mg Q6H PRN IVP NAUSEA OR VOMITING; Start at 02:00 Magnesium Hydroxide (Milk Of Magnesia Liq) 30 ml Q12H PRN PO CONSTIPATION; Start 07/20/16 at 02:00 Naloxone HCl (Narcan Inj) 0.4 mg UNSCH PRN IV SEE LABEL COMMENTS; Start at 02:00 Morphine Sulfate (Morphine Inj) 2 mg Q3H PRN IV PUSH PAIN SCALE 5 TO 10 Last administered on 07/22/16 05:37; Start 07/20/16 at 02:45 Albuterol Sulfate (Albuterol Neb) 1.25 mg Q6HR NEB PRN NEB SHORTNESS OF BREATH ; Start 07/20/16 at 07:45 Budesonide/ Formoterol Fumarate (Symbicort 160-4.5 Inh) 1 puff Q12HR INH Last administered on 07/22/16 08:50; Start 07/20/16 at 09:00 Enalaprilat (Vasotec Inj) 1.25 mg Q8H PRN IV PUSH SBP> OR = 180, DBP> OR = 100 Last administered on 07/21/16 17:25; Start 07/21/16 at 07:45 Phenol (Chloraseptic [place]) 2 spray Q2H PRN OROPHARYNG SORE THROAT Last administered on 07/21/16 18:53; Start 07/21/16 at 12:30 A/P Assessment and Plan Small bowel obstruction - NPO and continue with NG tube. -continue IV fluid, pain control and antiemetics as needed. -general surgery following. Leukocytosis - likely secondary to prednisone vs stress vs infection -afebrile -will monitor -monitor temps Mild renal insufficiency likely secondary to dehydration-improved. - IV fluid hydration as above - Avoid nephrotoxins Hypercalcemia, mild-resolved. Diarrhea on antibiotics recently - stool negative for C-diff. COPD with no exacerbation -resumed symbicort- albuterol as needed hypertension - monitor the BP trend -vasotec prn. -resume home meds when able to take PO. DVT prophylaxis - SCDs Eva Devine MD Jul 22, 2016 09:32
--- NOTE | 2016-07-22 15:35 | HHI.PR ---
Subjective Subjective Notes The patient states that he feels slightly better than he did previously. He has passed a small amount of gas. He has virtually no abdominal pain. Objective Vitals/I&O Vital Signs Date Time Temp Pulse Resp B/P Pulse Ox O2 Delivery O2 Flow Rate FiO2 07/22/16 12:00 98.4 92 17 172/88 95 07/20/16 02:40 Room Air Labs Laboratory Tests Test 07/22/16 04:21 White Blood Count 16.2 Red Blood Count 4.41 Hemoglobin 13.2 Hematocrit 39.9 Mean Corpuscular Volume 90.6 Mean Corpuscular Hemoglobin 29.9 Mean Corpuscular Hemoglobin 33.1 Concent Red Cell Distribution Width 13.7 Platelet Count 146 Mean Platelet Volume 8.2 Neutrophils (%) (Auto) 78.9 Lymphocytes (%) (Auto) 9.8 Monocytes (%) (Auto) 8.4 Eosinophils (%) (Auto) 2.6 Basophils (%) (Auto) 0.3 Neutrophils # (Auto) 12.8 Lymphocytes # (Auto) 1.6 Monocytes # (Auto) 1.4 Eosinophils # (Auto) 0.4 Basophils # (Auto) 0.1 CBC Comment DIFF FINAL Differential Comment Hematology Comments Radiology Last Impressions Abdomen/Pelvis CT 07/20/16 0000 Signed Impressions: Service Date/Time: July 01:05 - CONCLUSION: Anterior midline suprapubic ventral hernia similar to 2015 with the rectus diastases approximately 2.9 cm across. It contains a loop of small bowel. The small bowel proximal to the hernia is dilated and fluid-filled with a number of loops measuring 4.2 cm across. The exiting loop of small bowel is nondilated and non-fluid filled. The contents of the small bowel loop inside the hernia has more stool density concerning for obstruction. There is a tiny amount of fluid in the dependent portion of the hernia. The total hernia measures 5.0 x 5.1 cm across. There is not a significant amount of inflammation or bowel wall thickening to confirm bowel wall inflammation but the diameters of the small bowel within the peritoneal cavit is diagnostic for an obstructing hernia. Jhonatan Collins MD Cardiovascular: Regular Lungs: Clear Abdomen: Non-distended, Non-tender, BS normal Extremities: No edema A/P Assessment and Plan Impression: Incarcerated ventral incisional hernia with obstruction which clinically appears to be resolving. Plan: Continue nasogastric suction for now. Flat and upright abdominal films as well as a CBC will be ordered for the morning. Gold Martinez MD Jul 22, 2016 15:35
[2016-07-23] VITALS: BP 162/77; PULSE 88; RESP 17; TEMP 99.6; O2SAT 95
[2016-07-23 05:39] LABS: BASOPHIL % 0.3 % (0.0-2.0); EOSINOPHIL # 0.1 TH/MM3 (0-0.4); EOSINOPHIL % 0.8 % (0.0-4.0); HEMATOCRIT 37.7 % (39.0-51.0); HEMO FLAGS DIFF FINAL; LYMPH % 7.8 % (9.0-44.0); LYMPHOCYTE # 1.1 TH/MM3 (1.0-4.8); MEAN CELL VOLUME 87.4 FL (80.0-100.0); MEAN CORPUSCULAR HEMOGLOBIN 29.9 PG (27.0-34.0); MEAN CORPUSCULAR HGB CONC 34.2 % (32.0-36.0); NEUT % 84.1 % (16.0-70.0); PLATELET COUNT 177 TH/MM3 (150-450); RED BLOOD COUNT 4.32 MIL/MM3 (4.50-5.90); RED CELL DISTRIBUTION WIDTH 13.3 % (11.6-17.2); WHITE BLOOD COUNT 14.3 TH/MM3 (4.0-11.0)
[2016-07-23 05:48] LABS: BICARBONATE 27.2 MEQ/L (21.0-32.0); POTASSIUM 3.5 MEQ/L (3.5-5.1)
[2016-07-23] MEDS: BUDESONIDE-FORMOTEROL 160/4.5 MCG INHALER INH SCH ×2 (07:54→21:06)
[2016-07-23] MEDS: SODIUM CHLORIDE 0.9% FLUSH 10 ML FLUSH IV FLUSH SCH ×2 (07:54→21:00)
[2016-07-23] MEDS: SODIUM CHLOR 0.9% 1000 ML INJ 1,000 ML IV SCH ×2 (07:57→21:05)
[2016-07-23 08:00] VITALS: BP 180/89; PULSE 101; RESP 17; TEMP 98.1; O2SAT 95
--- NOTE | 2016-07-23 08:56 | RADRPT ---
EXAM DATE/TIME: 07/23/2016 08:33 [facility] COMPARISON: CT ABDOMEN & PELVIS W CONTRAST, July 20, 2016, 1:05. ABDOMEN FLAT & UPRIGHT, July 21, 2016, 7:28. INDICATIONS : Obstruction. MEDICAL HISTORY : Cardiovascular disease. Hypertension. Chronic obstructive pulmonary SURGICAL HISTORY : None. ENCOUNTER: Initial ACUITY: 1 day PAIN SCORE: 0/10 LOCATION: Bilateral abdomen FINDINGS: Supine and upright views of the abdomen were performed. There is an NG tube in place with its tip in the upper stomach. There is dilated small bowel the right upper quadrant with air-fluid level. Signif icant distention of the colon is not seen. Free air is not seen. There is degenerative change in the lower lumbar spine.. CONCLUSION: 1. Dilated small bowel especially in the right upper quadrant. Some degree of obstruction needs to be considered. 2. NG tube in the upper stomach. Iván Mix MD on July 23, 2016 at 8:51 Board Certified Radiologist. This report was verified electronically.
[2016-07-23 10:00] VITALS: O2SAT 92
--- NOTE | 2016-07-23 10:49 | HHI.PR ---
Subjective Remarks Ng tube in place. had a few small BM's earlier. abdominal pain is better. Objective Vitals Vital Signs Date Time Temp Pulse Resp B/P Pulse Ox O2 Delivery O2 Flow Rate FiO2 07/23/16 08:00 98.1 101 17 180/89 95 07/23/16 00:00 99.6 88 17 162/77 95 07/22/16 20:40 100 Nasal Cannula 2.00 07/22/16 20:00 96.9 88 17 172/81 96 07/22/16 16:00 97.5 83 17 179/81 95 07/22/16 12:00 98.4 92 17 172/88 95 07/22/16 11:04 95 Nasal Cannula 2.00 I/O 07/22/16 07/22/16 07/22/16 07/23/16 07/23/16 07/23/16 07:00 15:00 23:00 07:00 15:00 23:00 Intake Total 0 ml 820 ml 800 ml 240 ml 0 ml Output Total 1200 ml 400 ml 600 ml 950 ml Balance -1200 ml 420 ml 200 ml -710 ml 0 ml Intake Oral 0 ml 0 ml 0 ml 240 ml 0 ml IV Total 820 ml 800 ml Output Urine Total 450 ml 400 ml 200 ml 250 ml Gastric Drainage Total 750 ml 0 ml 400 ml 700 ml # Bowel Movements 0 Result Diagram: 07/23/16 0423 07/23/16 0423 Imaging Last Impressions Abdomen X-Ray 07/23/16 0800 Signed Impressions: Service Date/Time: Saturday, July 23, 2016 08:33 - CONCLUSION: 1. Dilated small bowel especially in the right upper quadrant. Some degree of obstruction needs to be considered. 2. NG tube in the upper stomach. Iván Mix MD Abdomen/Pelvis CT 07/20/16 0000 Signed Impressions: Service Date/Time: July 01:05 - CONCLUSION: Anterior midline suprapubic ventral hernia similar to 2015 with the rectus diastases approximately 2.9 cm across. It contains a loop of small bowel. The small bowel proximal to the hernia is dilated and fluid-filled with a number of loops measuring 4.2 cm across. The exiting loop of small bowel is nondilated and non-fluid filled. The contents of the small bowel loop inside the hernia has more stool density concerning for obstruction. There is a tiny amount of fluid in the dependent portion of the hernia. The total hernia measures 5.0 x 5.1 cm across. There is not a significant amount of inflammation or bowel wall thickening to confirm bowel wall inflammation but the diameters of the small bowel within the peritoneal cavit is diagnostic for an obstructing hernia. Jhonatan Collins MD Objective Remarks GENERAL: This is a well-nourished, well-developed patient, in no apparent respiratory distress- NG tube in place. CARDIOVASCULAR: Regular rate and regular rhythm without murmurs, gallops, or rubs. RESPIRATORY: Clear to auscultation. Breath sounds equal bilaterally. No wheezes , rales, or rhonchi. GASTROINTESTINAL: Abdomen soft, non-tender, distended. active bowel sounds MUSCULOSKELETAL: Extremities without clubbing, cyanosis, or edema. NEURO: Alert & Oriented x4 to person, place, time, situation. Moves all ext x4 Procedures none Medications and IVs Current Medications Sodium Chloride (NS 1000 ml Inj) 1,000 ml @ 1,000 mls/hr Q1H IV Last administered on 07/19/16 23:35; Start 07/19/16 at 23:07; Stop 07/20/16 at 00:06 ; Status DC Sodium Chloride (NS Flush) 2 ml UNSCH PRN IV FLUSH FLUSH AFTER USING IV ACCESS Last administered on 07/20/16 00:57; Start 07/19/16 at 23:15; Stop 07/20/16 at 02:03; Status DC Dicyclomine HCl (Bentyl Inj) 20 mg ONCE ONCE IM Last administered on 00:56; Start 07/20/16 at 01:00; Stop 07/20/16 at 01:01; Status DC Ondansetron HCl (Zofran Inj) 4 mg ONCE ONCE IV PUSH Last administered on 00:57; Start 07/20/16 at 01:00; Stop 07/20/16 at 01:01; Status DC Iohexol 95 ml 95 ml STK-MED ONCE IV Last administered on 07/20/16 01:16; Start 07/20/16 at 01:16; Stop 07/20/16 at 01:17; Status DC Sodium Chloride 1,000 ml @ 100 mls/hr Q10H IV ; Start 07/20/16 at 01:45; Stop 07/20/16 at 02:05; Status DC Sodium Chloride (NS 1000 ml Inj) 1,000 ml @ 100 mls/hr Q10H IV Last administered on 07/23/16 07:57; Start 07/20/16 at 01:53 Sodium Chloride (NS Flush) 2 ml UNSCH PRN IV FLUSH FLUSH AFTER USING IV ACCESS ; Start 07/20/16 at 02:00 Sodium Chloride (NS Flush) 2 ml BID IV FLUSH Last administered on 07/22/16 21: 00; Start 07/20/16 at 09:00 Acetaminophen (Tylenol) 650 mg Q4H PRN PO Fever, headache, Pain 1-4; Start at 02:00 Ondansetron HCl (Zofran Inj) 4 mg Q6H PRN IVP NAUSEA OR VOMITING; Start at 02:00 Magnesium Hydroxide (Milk Of Magnesia Liq) 30 ml Q12H PRN PO CONSTIPATION; Start 07/20/16 at 02:00 Naloxone HCl (Narcan Inj) 0.4 mg UNSCH PRN IV SEE LABEL COMMENTS; Start at 02:00 Morphine Sulfate (Morphine Inj) 2 mg Q3H PRN IV PUSH PAIN SCALE 5 TO 10 Last administered on 07/22/16 18:46; Start 07/20/16 at 02:45 Albuterol Sulfate (Albuterol Neb) 1.25 mg Q6HR NEB PRN NEB SHORTNESS OF BREATH ; Start 07/20/16 at 07:45 Budesonide/ Formoterol Fumarate (Symbicort 160-4.5 Inh) 1 puff Q12HR INH Last administered on 07/23/16 07:54; Start 07/20/16 at 09:00 Enalaprilat (Vasotec Inj) 1.25 mg Q8H PRN IV PUSH SBP> OR = 180, DBP> OR = 100 Last administered on 07/21/16 17:25; Start 07/21/16 at 07:45 Phenol (Chloraseptic [place]) 2 spray Q2H PRN OROPHARYNG SORE THROAT Last administered on 07/21/16 18:53; Start 07/21/16 at 12:30 A/P Assessment and Plan Small bowel obstruction - NPO and continue with NG tube. -continue IV fluid, pain control and antiemetics as needed. -general surgery following. Leukocytosis - likely secondary to prednisone vs stress vs infection-improving. -afebrile -will monitor -monitor temps Mild renal insufficiency likely secondary to dehydration-improved. - IV fluid hydration as above - Avoid nephrotoxins Hypercalcemia, mild-resolved. COPD with no exacerbation -resumed symbicort- albuterol as needed hypertension - monitor the BP trend -vasotec prn. -resume home meds when able to take PO. DVT prophylaxis - SCDs Eva Devine MD Jul 23, 2016 10:49
[2016-07-23 12:00] VITALS: BP 165/73; PULSE 80; RESP 17; TEMP 97.4; O2SAT 95
--- NOTE | 2016-07-23 13:19 | HHI.PR ---
Subjective Subjective Notes The patient denies any pain. He has been out of bed with minimal problem. He has had a a few small bowel movements but is passed a paucity of flatus. He denies any other problems. Objective Vitals/I&O Vital Signs Date Time Temp Pulse Resp B/P Pulse Ox O2 Delivery O2 Flow Rate FiO2 07/23/16 12:00 97.4 80 17 165/73 95 07/23/16 10:00 21 07/22/16 20:40 Nasal Cannula 2.00 Labs Laboratory Tests Test 07/23/16 04:23 White Blood Count 14.3 Red Blood Count 4.32 Hemoglobin 12.9 Hematocrit 37.7 Mean Corpuscular Volume 87.4 Mean Corpuscular Hemoglobin 29.9 Mean Corpuscular Hemoglobin 34.2 Concent Red Cell Distribution Width 13.3 Platelet Count 177 Mean Platelet Volume 8.5 Neutrophils (%) (Auto) 84.1 Lymphocytes (%) (Auto) 7.8 Monocytes (%) (Auto) 7.0 Eosinophils (%) (Auto) 0.8 Basophils (%) (Auto) 0.3 Neutrophils # (Auto) 12.0 Lymphocytes # (Auto) 1.1 Monocytes # (Auto) 1.0 Eosinophils # (Auto) 0.1 Basophils # (Auto) 0.0 CBC Comment DIFF FINAL Differential Comment Sodium Level 142 Potassium Level 3.5 Chloride Level 106 Carbon Dioxide Level 27.2 Anion Gap 9 Blood Urea Nitrogen 18 Creatinine 0.73 Estimat Glomerular Filtration 107 Rate Random Glucose 84 Calcium Level 8.6 Radiology Last 24 hours Impressions Abdomen X-Ray 07/23/16 0800 Signed Impressions: Service Date/Time: Saturday, July 23, 2016 08:33 - CONCLUSION: 1. Dilated small bowel especially in the right upper quadrant. Some degree of obstruction needs to be considered. 2. NG tube in the upper stomach. Iván Mix MD Last Impressions Abdomen/Pelvis CT 07/20/16 0000 Signed Impressions: Service Date/Time: July 01:05 - CONCLUSION: Anterior midline suprapubic ventral hernia similar to 2015 with the rectus diastases approximately 2.9 cm across. It contains a loop of small bowel. The small bowel proximal to the hernia is dilated and fluid-filled with a number of loops measuring 4.2 cm across. The exiting loop of small bowel is nondilated and non-fluid filled. The contents of the small bowel loop inside the hernia has more stool density concerning for obstruction. There is a tiny amount of fluid in the dependent portion of the hernia. The total hernia measures 5.0 x 5.1 cm across. There is not a significant amount of inflammation or bowel wall thickening to confirm bowel wall inflammation but the diameters of the small bowel within the peritoneal cavit is diagnostic for an obstructing hernia. Jhonatan Collins MD Cardiovascular: Regular Lungs: Clear Abdomen: Non-distended, Non-tender, BS normal Extremities: No edema A/P Assessment and Plan Impression: Incarcerated ventral incisional hernia with obstruction which continues to resolve. His abdomen is completely benign at this point and his white blood count is returning to normal. Plan: Continue nasogastric suction for now. Flat and upright abdominal films as well as a CBC and BMP will be ordered for the morning. Gold Martinez MD Jul 23, 2016 13:19
[2016-07-23 16:00] VITALS: BP 156/83; PULSE 118; RESP 17; TEMP 99.1; O2SAT 95
[2016-07-23 20:00] VITALS: BP 146/80; PULSE 109; RESP 20; TEMP 97.8; O2SAT 96
[2016-07-24] VITALS: BP 132/78; PULSE 99; RESP 20; TEMP 98; O2SAT 98
[2016-07-24] MEDS: SODIUM CHLOR 0.9% 1000 ML INJ 1,000 ML IV SCH (06:05)
[2016-07-24 06:27] LABS: AUTOMATED NEUTROPHIL # 13.2 TH/MM3 (1.8-7.7); BASOPHIL % 0.3 % (0.0-2.0); EOSINOPHIL # 0.1 TH/MM3 (0-0.4); EOSINOPHIL % 0.7 % (0.0-4.0); HEMATOCRIT 35.6 % (39.0-51.0); HEMO FLAGS DIFF FINAL; LYMPH % 7.5 % (9.0-44.0); LYMPHOCYTE # 1.2 TH/MM3 (1.0-4.8); MEAN CELL VOLUME 87.8 FL (80.0-100.0); MEAN CORPUSCULAR HEMOGLOBIN 29.5 PG (27.0-34.0); MEAN CORPUSCULAR HGB CONC 33.6 % (32.0-36.0); MONO % 7.1 % (0.0-8.0); NEUT % 84.4 % (16.0-70.0); PLATELET COUNT 181 TH/MM3 (150-450); RED BLOOD COUNT 4.05 MIL/MM3 (4.50-5.90); RED CELL DISTRIBUTION WIDTH 13.2 % (11.6-17.2); WHITE BLOOD COUNT 15.6 TH/MM3 (4.0-11.0)
[2016-07-24 06:50] LABS: BICARBONATE 29.5 MEQ/L (21.0-32.0); POTASSIUM 3.3 MEQ/L (3.5-5.1)
[2016-07-24 08:00] VITALS: BP 131/82; PULSE 82; RESP 12; TEMP 96.2; O2SAT 94
[2016-07-24] MEDS: SODIUM CHLORIDE 0.9% FLUSH 10 ML FLUSH IV FLUSH SCH ×2 (09:00→20:47)
--- NOTE | 2016-07-24 09:41 | RADRPT ---
EXAM DATE/TIME: 07/24/2016 08:55 [facility] COMPARISON: ABDOMEN SINGLE VIEW, July 21, 2016, 13:24. CT ABDOMEN & PELVIS W CONTRAST, July 20, 2016, 1:05. A BDOMEN FLAT & UPRIGHT, July 23, 2016, 8:33. INDICATIONS : Patient with abdominal pain and diarrhea. Status post colonic resection. Obstruction secondary to her eliud. MEDICAL HISTORY : Hypertension. SURGICAL HISTORY : Colon resection. ENCOUNTER: Subsequent ACUITY: 4 - 6 days PAIN SCORE: 0/10 LOCATION: Abdomen. FINDINGS: AP supine and erect views of the abdomen were obtained and again demonstrate a nasogastric tube in pl shana with the tip projected over the proximal stomach. Dilated loops of bowel remain in the right abdo men with interval increase in the number of loops of small bowel containing air in the central abdome n. Gas is now noted in the descending colon and sigmoid colon. There is no definite free air. There a re multiple air-fluid levels on the erect film. The lung bases are clear. The bony structures remain intact. CONCLUSION: 1. Abnormal bowel gas pattern remains with increased loops of air-containing small bowel in the midab domen. There is increased gas noted in the colon as well. 2. No evidence of free air. 3. The nasogastric tube remains in place. Royal Gross MD on July 24, 2016 at 9:36 Board Certified Radiologist. This report was verified electronically.
--- NOTE | 2016-07-24 09:59 | HHI.PR ---
Subjective Remarks in no acute distress. abdominal pain is better. no nausea or vomiting. had a few more BM's. NG tube in place. Objective Vitals Vital Signs Date Time Temp Pulse Resp B/P Pulse Ox O2 Delivery O2 Flow Rate FiO2 07/24/16 08:00 96.2 82 12 131/82 94 07/24/16 00:00 98.0 99 20 132/78 98 07/23/16 20:00 97.8 109 20 146/80 96 07/23/16 16:00 99.1 118 17 156/83 95 07/23/16 12:00 97.4 80 17 165/73 95 07/23/16 10:00 92 21 I/O 07/23/16 07/23/16 07/23/16 07/24/16 07/24/16 07/24/16 07:00 15:00 23:00 07:00 15:00 23:00 Intake Total 240 ml 0 ml 1080 ml 120 ml Output Total 950 ml 650 ml 1050 ml 1100 ml Balance -710 ml -650 ml 30 ml -980 ml Intake Oral 240 ml 0 ml 180 ml 120 ml IV Total 900 ml Output Urine Total 250 ml 200 ml 550 ml 400 ml Gastric Drainage Total 700 ml 450 ml 500 ml 700 ml # Bowel Movements 0 0 0 Result Diagram: 07/24/16 0540 07/24/16 0540 Imaging Last Impressions Abdomen X-Ray 07/24/16 0800 Signed Impressions: Service Date/Time: Sunday, July 24, 2016 08:55 - CONCLUSION: 1. Abnormal bowel gas pattern remains with increased loops of air-containing small bowel in the midabdomen. There is increased gas noted in the colon as well. 2. No evidence of free air. 3. The nasogastric tube remains in place. Royal Gross MD Abdomen/Pelvis CT 07/20/16 0000 Signed Impressions: Service Date/Time: July 01:05 - CONCLUSION: Anterior midline suprapubic ventral hernia similar to 2015 with the rectus diastases approximately 2.9 cm across. It contains a loop of small bowel. The small bowel proximal to the hernia is dilated and fluid-filled with a number of loops measuring 4.2 cm across. The exiting loop of small bowel is nondilated and non-fluid filled. The contents of the small bowel loop inside the hernia has more stool density concerning for obstruction. There is a tiny amount of fluid in the dependent portion of the hernia. The total hernia measures 5.0 x 5.1 cm across. There is not a significant amount of inflammation or bowel wall thickening to confirm bowel wall inflammation but the diameters of the small bowel within the peritoneal cavit is diagnostic for an obstructing hernia. Jhonatan Collins MD Objective Remarks GENERAL: This is a well-nourished, well-developed patient, in no apparent respiratory distress- NG tube in place. CARDIOVASCULAR: Regular rate and regular rhythm without murmurs, gallops, or rubs. RESPIRATORY: Clear to auscultation. Breath sounds equal bilaterally. No wheezes , rales, or rhonchi. GASTROINTESTINAL: Abdomen soft, non-tender, distended. active bowel sounds MUSCULOSKELETAL: Extremities without clubbing, cyanosis, or edema. NEURO: Alert & Oriented x4 to person, place, time, situation. Moves all ext x4 Procedures none Medications and IVs Current Medications Sodium Chloride (NS 1000 ml Inj) 1,000 ml @ 1,000 mls/hr Q1H IV Last administered on 07/19/16 23:35; Start 07/19/16 at 23:07; Stop 07/20/16 at 00:06 ; Status DC Sodium Chloride (NS Flush) 2 ml UNSCH PRN IV FLUSH FLUSH AFTER USING IV ACCESS Last administered on 07/20/16 00:57; Start 07/19/16 at 23:15; Stop 07/20/16 at 02:03; Status DC Dicyclomine HCl (Bentyl Inj) 20 mg ONCE ONCE IM Last administered on 00:56; Start 07/20/16 at 01:00; Stop 07/20/16 at 01:01; Status DC Ondansetron HCl (Zofran Inj) 4 mg ONCE ONCE IV PUSH Last administered on 00:57; Start 07/20/16 at 01:00; Stop 07/20/16 at 01:01; Status DC Iohexol 95 ml 95 ml STK-MED ONCE IV Last administered on 07/20/16 01:16; Start 07/20/16 at 01:16; Stop 07/20/16 at 01:17; Status DC Sodium Chloride 1,000 ml @ 100 mls/hr Q10H IV ; Start 07/20/16 at 01:45; Stop 07/20/16 at 02:05; Status DC Sodium Chloride (NS 1000 ml Inj) 1,000 ml @ 100 mls/hr Q10H IV Last administered on 07/24/16 06:05; Start 07/20/16 at 01:53 Sodium Chloride (NS Flush) 2 ml UNSCH PRN IV FLUSH FLUSH AFTER USING IV ACCESS ; Start 07/20/16 at 02:00 Sodium Chloride (NS Flush) 2 ml BID IV FLUSH Last administered on 07/23/16 21: 00; Start 07/20/16 at 09:00 Acetaminophen (Tylenol) 650 mg Q4H PRN PO Fever, headache, Pain 1-4; Start at 02:00 Ondansetron HCl (Zofran Inj) 4 mg Q6H PRN IVP NAUSEA OR VOMITING; Start at 02:00 Magnesium Hydroxide (Milk Of Magnesia Liq) 30 ml Q12H PRN PO CONSTIPATION; Start 07/20/16 at 02:00 Naloxone HCl (Narcan Inj) 0.4 mg UNSCH PRN IV SEE LABEL COMMENTS; Start at 02:00 Morphine Sulfate (Morphine Inj) 2 mg Q3H PRN IV PUSH PAIN SCALE 5 TO 10 Last administered on 07/22/16 18:46; Start 07/20/16 at 02:45 Albuterol Sulfate (Albuterol Neb) 1.25 mg Q6HR NEB PRN NEB SHORTNESS OF BREATH ; Start 07/20/16 at 07:45 Budesonide/ Formoterol Fumarate (Symbicort 160-4.5 Inh) 1 puff Q12HR INH Last administered on 07/23/16 21:06; Start 07/20/16 at 09:00 Enalaprilat (Vasotec Inj) 1.25 mg Q8H PRN IV PUSH SBP> OR = 180, DBP> OR = 100 Last administered on 07/21/16 17:25; Start 07/21/16 at 07:45 Phenol (Chloraseptic [place]) 2 spray Q2H PRN OROPHARYNG SORE THROAT Last administered on 07/21/16 18:53; Start 07/21/16 at 12:30 A/P Assessment and Plan A/P Small bowel obstruction - NPO and continue with NG tube. -continue IV fluid, pain control and antiemetics as needed. -general surgery following. Leukocytosis - likely secondary to prednisone vs stress vs infection- -afebrile -will monitor -monitor temps Mild renal insufficiency likely secondary to dehydration-improved. - IV fluid hydration as above - Avoid nephrotoxins Hypercalcemia, mild-resolved. mild hypokalemia; will replace. COPD with no exacerbation -resumed symbicort- albuterol as needed hypertension - monitor the BP trend -vasotec prn. -resume home meds when able to take PO. DVT prophylaxis - SCDs Eva Devine MD Jul 24, 2016 09:59
[2016-07-24] MEDS: NS + KCL 20 MEQ INJ 1,000 ML IV SCH ×2 (11:38→20:47)
[2016-07-24] MEDS: BUDESONIDE-FORMOTEROL 160/4.5 MCG INHALER INH SCH ×2 (11:39→20:46)
[2016-07-24 12:00] VITALS: BP 145/86; PULSE 94; RESP 16; TEMP 96.9; O2SAT 97
[2016-07-24] MEDS ORDERED: DIATRIZOATE MEGLUM/DIATRIZOATE SOD 120 ML BTL (for RAD DIAG) NG ONE (14:28)
[2016-07-24] MEDS: POTASSIUM CHLOR 20 MEQ PREMIX 100 ML IV SCH ×2 (15:34→16:30)
[2016-07-24 16:00] VITALS: BP 139/79; PULSE 90; RESP 16; TEMP 96.4; O2SAT 95
--- NOTE | 2016-07-24 16:03 | HHI.PR ---
Subjective Subjective Notes Abdominal pain completely gone. He is having dark green bilious output. KUB shows air in colon but persistent dilated loops. He has been passing flatus and had multiple bowel movts. Objective Vitals/I&O Vital Signs Date Time Temp Pulse Resp B/P Pulse Ox O2 Delivery O2 Flow Rate FiO2 07/24/16 08:00 96.2 82 12 131/82 94 07/23/16 10:00 21 07/22/16 20:40 Nasal Cannula 2.00 Labs Laboratory Tests Test 07/24/16 05:40 White Blood Count 15.6 Red Blood Count 4.05 Hemoglobin 12.0 Hematocrit 35.6 Mean Corpuscular Volume 87.8 Mean Corpuscular Hemoglobin 29.5 Mean Corpuscular Hemoglobin 33.6 Concent Red Cell Distribution Width 13.2 Platelet Count 181 Mean Platelet Volume 8.3 Neutrophils (%) (Auto) 84.4 Lymphocytes (%) (Auto) 7.5 Monocytes (%) (Auto) 7.1 Eosinophils (%) (Auto) 0.7 Basophils (%) (Auto) 0.3 Neutrophils # (Auto) 13.2 Lymphocytes # (Auto) 1.2 Monocytes # (Auto) 1.1 Eosinophils # (Auto) 0.1 Basophils # (Auto) 0.0 CBC Comment DIFF FINAL Differential Comment Sodium Level 145 Potassium Level 3.3 Chloride Level 108 Carbon Dioxide Level 29.5 Anion Gap 8 Blood Urea Nitrogen 18 Creatinine 0.75 Estimat Glomerular Filtration 104 Rate Random Glucose 98 Calcium Level 8.6 Radiology Last 24 hours Impressions Abdomen X-Ray 07/23/16 0800 Signed Impressions: Service Date/Time: Saturday, July 23, 2016 08:33 - CONCLUSION: 1. Dilated small bowel especially in the right upper quadrant. Some degree of obstruction needs to be considered. 2. NG tube in the upper stomach. Iván Mix MD Last Impressions Abdomen/Pelvis CT 07/20/16 0000 Signed Impressions: Service Date/Time: July 01:05 - CONCLUSION: Anterior midline suprapubic ventral hernia similar to 2015 with the rectus diastases approximately 2.9 cm across. It contains a loop of small bowel. The small bowel proximal to the hernia is dilated and fluid-filled with a number of loops measuring 4.2 cm across. The exiting loop of small bowel is nondilated and non-fluid filled. The contents of the small bowel loop inside the hernia has more stool density concerning for obstruction. There is a tiny amount of fluid in the dependent portion of the hernia. The total hernia measures 5.0 x 5.1 cm across. There is not a significant amount of inflammation or bowel wall thickening to confirm bowel wall inflammation but the diameters of the small bowel within the peritoneal cavit is diagnostic for an obstructing hernia. Jhonatan Collins MD Narrative Exam NAD Abd: soft, completely nontender. I no longer feel the suprapubic hernia and it seems to have reduced. NG with dark bilious output A/P Assessment and Plan 65 yo M chronically incarcerated suprapubic hernia now causing obstruction. Obstruction seems to be resolving and hernia may have spontaneously reduced with decompression. Check SBFT. If good will plan to dc ng and start diet tomorrow. He will need elective ventral hernia repair in the near future. Wade Butcher MD Jul 24, 2016 16:03
[2016-07-24 20:00] VITALS: BP 157/87; PULSE 99; RESP 20; TEMP 98.4; O2SAT 94
--- NOTE | 2016-07-24 20:41 | RADRPT ---
EXAM DATE/TIME: 07/24/2016 14:09 [facility] COMPARISON: No previous studies available for comparison. INDICATIONS : Obstruction. FLUORO TIME: 0.0 minutes IMAGE COUNT: 9 CONTRAST: Gastroxavi IMAGING TIME(S): 15 min, 30 min, 45 min, 1 hr, 3 hr, 6 hrs MEDICAL HISTORY : None. 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 There is air present wi thin the large bowel extending to the rectum. NG tube is present and the side-port at the esophagogas tric junction. Contrast is noted within the large bowel at the 3 hour tereso and rectosigmoid colon at 6 hours. CONCLUSION: Dilated loops of small bowel without evidence for complete obstruction. Contrast is noted within the large bowel. Abel Hawkins MD on July 24, 2016 at 20:39 Board Certified Radiologist. This report was verified electronically.
[2016-07-25] VITALS: BP 152/78; PULSE 90; RESP 20; TEMP 97.2; O2SAT 96
[2016-07-25] MEDS ORDERED: POTASSIUM CHLORIDE INJ 20 MEQ in SODIUM CHLOR 0.9% 1000 ML INJ 1,000 ML IV SCH (01:53)
[2016-07-25 05:15] LABS: AUTOMATED NEUTROPHIL # 12.2 TH/MM3 (1.8-7.7); BASOPHIL # 0.1 TH/MM3 (0-0.2); BASOPHIL % 0.4 % (0.0-2.0); EOSINOPHIL # 0.1 TH/MM3 (0-0.4); EOSINOPHIL % 0.6 % (0.0-4.0); HEMATOCRIT 36.8 % (39.0-51.0); HEMO FLAGS DIFF FINAL; LYMPH % 11.3 % (9.0-44.0); LYMPHOCYTE # 1.7 TH/MM3 (1.0-4.8); MEAN CELL VOLUME 88.1 FL (80.0-100.0); MEAN CORPUSCULAR HGB CONC 32.9 % (32.0-36.0); MONO % 7.5 % (0.0-8.0); NEUT % 80.2 % (16.0-70.0); PLATELET COUNT 193 TH/MM3 (150-450); RED BLOOD COUNT 4.18 MIL/MM3 (4.50-5.90); RED CELL DISTRIBUTION WIDTH 13.5 % (11.6-17.2); WHITE BLOOD COUNT 15.3 TH/MM3 (4.0-11.0)
[2016-07-25 05:34] LABS: BICARBONATE 30.8 MEQ/L (21.0-32.0); POTASSIUM 3.6 MEQ/L (3.5-5.1)
[2016-07-25 08:00] VITALS: BP 141/75; PULSE 92; RESP 18; TEMP 97; O2SAT 94
[2016-07-25] MEDS: BUDESONIDE-FORMOTEROL 160/4.5 MCG INHALER INH SCH ×2 (08:39→21:00)
[2016-07-25] MEDS: SODIUM CHLORIDE 0.9% FLUSH 10 ML FLUSH IV FLUSH SCH ×2 (08:40→21:00)
--- NOTE | 2016-07-25 09:58 | HHI.PR ---
Subjective Subjective Notes He is very thirsty. Having a lot of gas and liquid stool. Denies abdominal pain. Objective Vitals/I&O Vital Signs Date Time Temp Pulse Resp B/P Pulse Ox O2 Delivery O2 Flow Rate FiO2 07/25/16 08:00 97.0 92 18 141/75 94 07/23/16 10:00 21 07/22/16 20:40 Nasal Cannula 2.00 Labs Laboratory Tests Test 07/25/16 04:41 White Blood Count 15.3 Red Blood Count 4.18 Hemoglobin 12.1 Hematocrit 36.8 Mean Corpuscular Volume 88.1 Mean Corpuscular Hemoglobin 29.0 Mean Corpuscular Hemoglobin 32.9 Concent Red Cell Distribution Width 13.5 Platelet Count 193 Mean Platelet Volume 8.5 Neutrophils (%) (Auto) 80.2 Lymphocytes (%) (Auto) 11.3 Monocytes (%) (Auto) 7.5 Eosinophils (%) (Auto) 0.6 Basophils (%) (Auto) 0.4 Neutrophils # (Auto) 12.2 Lymphocytes # (Auto) 1.7 Monocytes # (Auto) 1.1 Eosinophils # (Auto) 0.1 Basophils # (Auto) 0.1 CBC Comment DIFF FINAL Differential Comment Sodium Level 150 Potassium Level 3.6 Chloride Level 113 Carbon Dioxide Level 30.8 Anion Gap 6 Blood Urea Nitrogen 22 Creatinine 0.85 Estimat Glomerular Filtration 90 Rate Random Glucose 104 Calcium Level 8.6 Radiology Last 24 hours Impressions Abdomen X-Ray 07/23/16 0800 Signed Impressions: Service Date/Time: Saturday, July 23, 2016 08:33 - CONCLUSION: 1. Dilated small bowel especially in the right upper quadrant. Some degree of obstruction needs to be considered. 2. NG tube in the upper stomach. Iván Mix MD Last Impressions Abdomen/Pelvis CT 07/20/16 0000 Signed Impressions: Service Date/Time: July 01:05 - CONCLUSION: Anterior midline suprapubic ventral hernia similar to 2015 with the rectus diastases approximately 2.9 cm across. It contains a loop of small bowel. The small bowel proximal to the hernia is dilated and fluid-filled with a number of loops measuring 4.2 cm across. The exiting loop of small bowel is nondilated and non-fluid filled. The contents of the small bowel loop inside the hernia has more stool density concerning for obstruction. There is a tiny amount of fluid in the dependent portion of the hernia. The total hernia measures 5.0 x 5.1 cm across. There is not a significant amount of inflammation or bowel wall thickening to confirm bowel wall inflammation but the diameters of the small bowel within the peritoneal cavit is diagnostic for an obstructing hernia. Jhonatan Collins MD Narrative Exam NAD Abd: soft, completely nontender. NG high output but he is drinking a lot. A/P Assessment and Plan 65 yo M chronically incarcerated suprapubic hernia now causing obstruction. SBFT shows dilated loops but contrast in colon. Clamp ng and check residuals, possibly remove today. If removed will start fulls. I started levaquin/flagyl due to persistent elevation of his WBC. HadleyWade roblero MD Jul 25, 2016 09:58
[2016-07-25] MEDS: metroNIDAZOLE 500 MG INJ 100 ML IV SCH ×2 (10:35→17:04)
[2016-07-25 12:00] VITALS: BP 151/79; PULSE 82; RESP 16; TEMP 97.3; O2SAT 94
[2016-07-25] MEDS: LEVOFLOXACIN 750 MG PREMIX INJ 150 ML IV SCH (12:17)
--- NOTE | 2016-07-25 12:47 | HHI.PR ---
Subjective Remarks feels and looks better today. NG tube has been clamped. abdominal pain is minimal to mild. no nausea or vomiting. Objective Vitals Vital Signs Date Time Temp Pulse Resp B/P Pulse Ox O2 Delivery O2 Flow Rate FiO2 07/25/16 12:00 97.3 82 16 151/79 94 07/25/16 08:00 97.0 92 18 141/75 94 07/25/16 00:00 97.2 90 20 152/78 96 07/24/16 20:00 98.4 99 20 157/87 94 07/24/16 16:00 96.4 90 16 139/79 95 I/O 07/24/16 07/24/16 07/24/16 07/25/16 07/25/16 07/25/16 07:00 15:00 23:00 07:00 15:00 23:00 Intake Total 120 ml 1562 ml 718 ml 855 ml Output Total 1100 ml 300 ml 1200 ml 3200 ml Balance -980 ml 1262 ml -482 ml -2345 ml Intake Oral 120 ml 270 ml 180 ml 270 ml IV Total 1292 ml 538 ml 585 ml Output Urine Total 400 ml 300 ml 400 ml Gastric Drainage Total 700 ml 300 ml 900 ml 2800 ml # Voids 3 # Bowel Movements 0 3 3 0 Result Diagram: 07/25/16 0441 07/25/16 0441 Imaging Last Impressions Abdomen X-Ray 07/24/16 0800 Signed Impressions: Service Date/Time: Sunday, July 24, 2016 08:55 - CONCLUSION: 1. Abnormal bowel gas pattern remains with increased loops of air-containing small bowel in the midabdomen. There is increased gas noted in the colon as well. 2. No evidence of free air. 3. The nasogastric tube remains in place. Royal Gross MD Small Bowel X-Ray 07/24/16 0000 Signed Impressions: Service Date/Time: Sunday, July 24, 2016 14:09 - CONCLUSION: Dilated loops of small bowel without evidence for complete obstruction. Contrast is noted within the large bowel. Abel Hawkins MD Abdomen/Pelvis CT 07/20/16 0000 Signed Impressions: Service Date/Time: July 01:05 - CONCLUSION: Anterior midline suprapubic ventral hernia similar to 2015 with the rectus diastases approximately 2.9 cm across. It contains a loop of small bowel. The small bowel proximal to the hernia is dilated and fluid-filled with a number of loops measuring 4.2 cm across. The exiting loop of small bowel is nondilated and non-fluid filled. The contents of the small bowel loop inside the hernia has more stool density concerning for obstruction. There is a tiny amount of fluid in the dependent portion of the hernia. The total hernia measures 5.0 x 5.1 cm across. There is not a significant amount of inflammation or bowel wall thickening to confirm bowel wall inflammation but the diameters of the small bowel within the peritoneal cavit is diagnostic for an obstructing hernia. Jhonatan Collins MD Objective Remarks GENERAL: This is a well-nourished, well-developed patient, in no apparent respiratory distress- NG tube in place. CARDIOVASCULAR: Regular rate and regular rhythm without murmurs, gallops, or rubs. RESPIRATORY: Clear to auscultation. Breath sounds equal bilaterally. No wheezes , rales, or rhonchi. GASTROINTESTINAL: Abdomen soft, non-tender, distended. active bowel sounds MUSCULOSKELETAL: Extremities without clubbing, cyanosis, or edema. NEURO: Alert & Oriented x4 to person, place, time, situation. Moves all ext x4 Procedures none Medications and IVs Current Medications Sodium Chloride (NS 1000 ml Inj) 1,000 ml @ 1,000 mls/hr Q1H IV Last administered on 07/19/16 23:35; Start 07/19/16 at 23:07; Stop 07/20/16 at 00:06 ; Status DC Sodium Chloride (NS Flush) 2 ml UNSCH PRN IV FLUSH FLUSH AFTER USING IV ACCESS Last administered on 07/20/16 00:57; Start 07/19/16 at 23:15; Stop 07/20/16 at 02:03; Status DC Dicyclomine HCl (Bentyl Inj) 20 mg ONCE ONCE IM Last administered on 00:56; Start 07/20/16 at 01:00; Stop 07/20/16 at 01:01; Status DC Ondansetron HCl (Zofran Inj) 4 mg ONCE ONCE IV PUSH Last administered on 00:57; Start 07/20/16 at 01:00; Stop 07/20/16 at 01:01; Status DC Iohexol 95 ml 95 ml STK-MED ONCE IV Last administered on 07/20/16 01:16; Start 07/20/16 at 01:16; Stop 07/20/16 at 01:17; Status DC Sodium Chloride 1,000 ml @ 100 mls/hr Q10H IV ; Start 07/20/16 at 01:45; Stop 07/20/16 at 02:05; Status DC Sodium Chloride (NS 1000 ml Inj) 1,000 ml @ 100 mls/hr Q10H IV Last administered on 07/24/16 06:05; Start 07/20/16 at 01:53; Stop 07/24/16 at 09:58 ; Status DC Sodium Chloride (NS Flush) 2 ml UNSCH PRN IV FLUSH FLUSH AFTER USING IV ACCESS ; Start 07/20/16 at 02:00 Sodium Chloride (NS Flush) 2 ml BID IV FLUSH Last administered on 07/23/16 21: 00; Start 07/20/16 at 09:00 Acetaminophen (Tylenol) 650 mg Q4H PRN PO Fever, headache, Pain 1-4; Start at 02:00 Ondansetron HCl (Zofran Inj) 4 mg Q6H PRN IVP NAUSEA OR VOMITING; Start at 02:00 Magnesium Hydroxide (Milk Of Magnchristopher Liq) 30 ml Q12H PRN PO CONSTIPATION; Start 07/20/16 at 02:00 Naloxone HCl (Narcan Inj) 0.4 mg UNSCH PRN IV SEE LABEL COMMENTS; Start at 02:00 Morphine Sulfate (Morphine Inj) 2 mg Q3H PRN IV PUSH PAIN SCALE 5 TO 10 Last administered on 07/22/16 18:46; Start 07/20/16 at 02:45 Albuterol Sulfate (Albuterol Neb) 1.25 mg Q6HR NEB PRN NEB SHORTNESS OF BREATH ; Start 07/20/16 at 07:45 Budesonide/ Formoterol Fumarate (Symbicort 160-4.5 Inh) 1 puff Q12HR INH Last administered on 07/25/16 08:39; Start 07/20/16 at 09:00 Enalaprilat (Vasotec Inj) 1.25 mg Q8H PRN IV PUSH SBP> OR = 180, DBP> OR = 100 Last administered on 07/21/16 17:25; Start 07/21/16 at 07:45 Phenol 2 spray 2 spray Q2H PRN OROPHARYNG SORE THROAT Last administered on 07/21 18:53; Start 07/21/16 at 12:30 Potassium Chloride 20 meq/ Sodium Chloride 1,010 ml @ 100 mls/hr Q10H6M IV ; Start 07/25/16 at 01:53; Stop 07/25/16 at 01:53; Status DC Potassium Chloride/Sodium Chloride 1,000 ml @ 100 mls/hr Q10H IV Last administered on 07/24/16 20:47; Start 07/24/16 at 11:00 Potassium Chloride (KCl 20 Meq Premix Inj) 100 ml @ 50 mls/hr Q2H IV Last administered on 07/24/16 15:34; Start 07/24/16 at 14:30; Stop 07/24/16 at 18:29 ; Status DC Diatrizoate Meglum/ Diatrizoate Sod 240 ml 240 ml STK-MED ONCE NG ; Start at 14:28; Stop 07/24/16 at 14:29; Status DC Levofloxacin/ Dextrose 150 ml @ 100 mls/hr Q24H IV Last administered on 12:17; Start 07/25/16 at 11:00 Metronidazole (Flagyl 500 Mg Inj) 100 ml @ 100 mls/hr Q8H IV Last administered on 07/25/16 10:35; Start 07/25/16 at 10:00 A/P Assessment and Plan A/P Small bowel obstruction -NG tube has been clamped. -continue IV fluid, pain control and antiemetics as needed. -general surgery following. Leukocytosis - likely secondary to prednisone vs stress vs infection- -afebrile -started on levaquin and flagyl -will monitor -monitor temps Mild renal insufficiency likely secondary to dehydration-improved. - IV fluid hydration as above - Avoid nephrotoxins hypernatremia; continue IV fluid- will monitor; BMP in am. Hypercalcemia, mild-resolved. mild hypokalemia; replaced. COPD with no exacerbation -resumed symbicort- albuterol as needed hypertension - monitor the BP trend -vasotec prn. -resume home meds when able to take PO. DVT prophylaxis - SCDs Eva Devine MD Jul 25, 2016 12:46
[2016-07-25 16:00] VITALS: BP 164/91; PULSE 85; RESP 17; TEMP 96.7; O2SAT 95
[2016-07-25 20:00] VITALS: BP 143/81; PULSE 107; RESP 20; TEMP 98.9; O2SAT 98
[2016-07-26] VITALS: BP 152/81; PULSE 91; RESP 20; TEMP 98.4; O2SAT 98
[2016-07-26] MEDS: metroNIDAZOLE 500 MG INJ 100 ML IV SCH ×2 (02:00→08:55)
[2016-07-26] MEDS: NS + KCL 20 MEQ INJ 1,000 ML IV SCH ×2 (02:00→11:39)
[2016-07-26 05:44] LABS: BICARBONATE 26.6 MEQ/L (21.0-32.0); POTASSIUM 4.3 MEQ/L (3.5-5.1)
[2016-07-26 08:00] VITALS: BP 141/83; PULSE 87; RESP 16; TEMP 96.5; O2SAT 97
[2016-07-26] MEDS: SODIUM CHLORIDE 0.9% FLUSH 10 ML FLUSH IV FLUSH SCH (08:54)
[2016-07-26] MEDS: BUDESONIDE-FORMOTEROL 160/4.5 MCG INHALER INH SCH (08:54)
--- NOTE | 2016-07-26 10:47 | HHI.PR ---
Subjective Remarks NG tube has been removed. overall doing fine. no abdominal pain, nausea or vomiting. Objective Vitals Vital Signs Date Time Temp Pulse Resp B/P Pulse Ox O2 Delivery O2 Flow Rate FiO2 07/26/16 08:00 96.5 87 16 141/83 97 07/26/16 00:00 98.4 91 20 152/81 98 07/25/16 20:00 98.9 107 20 143/81 98 07/25/16 16:00 96.7 85 17 164/91 95 07/25/16 12:00 97.3 82 16 151/79 94 I/O 07/25/16 07/25/16 07/25/16 07/26/16 07/26/16 07/26/16 07:00 15:00 23:00 07:00 15:00 23:00 Intake Total 855 ml 580 ml 240 ml 949 ml Output Total 3200 ml 305 ml 120 ml Balance -2345 ml 275 ml 120 ml 949 ml Intake Oral 270 ml 180 ml 240 ml 720 ml IV Total 585 ml 400 ml 229 ml Output Urine Total 400 ml 5 ml Gastric Drainage Total 2800 ml 300 ml 120 ml # Voids 1 2 # Bowel Movements 0 0 2 Result Diagram: 07/25/16 0441 07/26/16 0451 Imaging Last Impressions Abdomen X-Ray 07/24/16 0800 Signed Impressions: Service Date/Time: Sunday, July 24, 2016 08:55 - CONCLUSION: 1. Abnormal bowel gas pattern remains with increased loops of air-containing small bowel in the midabdomen. There is increased gas noted in the colon as well. 2. No evidence of free air. 3. The nasogastric tube remains in place. Royal Gross MD Small Bowel X-Ray 07/24/16 0000 Signed Impressions: Service Date/Time: Sunday, July 24, 2016 14:09 - CONCLUSION: Dilated loops of small bowel without evidence for complete obstruction. Contrast is noted within the large bowel. Abel Hawkins MD Abdomen/Pelvis CT 07/20/16 0000 Signed Impressions: Service Date/Time: July 01:05 - CONCLUSION: Anterior midline suprapubic ventral hernia similar to 2015 with the rectus diastases approximately 2.9 cm across. It contains a loop of small bowel. The small bowel proximal to the hernia is dilated and fluid-filled with a number of loops measuring 4.2 cm across. The exiting loop of small bowel is nondilated and non-fluid filled. The contents of the small bowel loop inside the hernia has more stool density concerning for obstruction. There is a tiny amount of fluid in the dependent portion of the hernia. The total hernia measures 5.0 x 5.1 cm across. There is not a significant amount of inflammation or bowel wall thickening to confirm bowel wall inflammation but the diameters of the small bowel within the peritoneal cavit is diagnostic for an obstructing hernia. Jhonatan Collins MD Objective Remarks GENERAL: This is a well-nourished, well-developed patient, in no apparent respiratory distress- NG tube in place. CARDIOVASCULAR: Regular rate and regular rhythm without murmurs, gallops, or rubs. RESPIRATORY: Clear to auscultation. Breath sounds equal bilaterally. No wheezes , rales, or rhonchi. GASTROINTESTINAL: Abdomen soft, non-tender, distended. active bowel sounds MUSCULOSKELETAL: Extremities without clubbing, cyanosis, or edema. NEURO: Alert & Oriented x4 to person, place, time, situation. Moves all ext x4 Procedures none Medications and IVs Current Medications Sodium Chloride (NS 1000 ml Inj) 1,000 ml @ 1,000 mls/hr Q1H IV Last administered on 07/19/16 23:35; Start 07/19/16 at 23:07; Stop 07/20/16 at 00:06 ; Status DC Sodium Chloride (NS Flush) 2 ml UNSCH PRN IV FLUSH FLUSH AFTER USING IV ACCESS Last administered on 07/20/16 00:57; Start 07/19/16 at 23:15; Stop 07/20/16 at 02:03; Status DC Dicyclomine HCl (Bentyl Inj) 20 mg ONCE ONCE IM Last administered on 00:56; Start 07/20/16 at 01:00; Stop 07/20/16 at 01:01; Status DC Ondansetron HCl (Zofran Inj) 4 mg ONCE ONCE IV PUSH Last administered on 00:57; Start 07/20/16 at 01:00; Stop 07/20/16 at 01:01; Status DC Iohexol 95 ml 95 ml STK-MED ONCE IV Last administered on 07/20/16 01:16; Start 07/20/16 at 01:16; Stop 07/20/16 at 01:17; Status DC Sodium Chloride 1,000 ml @ 100 mls/hr Q10H IV ; Start 07/20/16 at 01:45; Stop 07/20/16 at 02:05; Status DC Sodium Chloride (NS 1000 ml Inj) 1,000 ml @ 100 mls/hr Q10H IV Last administered on 07/24/16 06:05; Start 07/20/16 at 01:53; Stop 07/24/16 at 09:58 ; Status DC Sodium Chloride (NS Flush) 2 ml UNSCH PRN IV FLUSH FLUSH AFTER USING IV ACCESS ; Start 07/20/16 at 02:00 Sodium Chloride (NS Flush) 2 ml BID IV FLUSH Last administered on 07/25/16 21: 00; Start 07/20/16 at 09:00 Acetaminophen (Tylenol) 650 mg Q4H PRN PO Fever, headache, Pain 1-4; Start at 02:00 Ondansetron HCl (Zofran Inj) 4 mg Q6H PRN IVP NAUSEA OR VOMITING; Start at 02:00 Magnesium Hydroxide (Milk Of Magnchristopher Liq) 30 ml Q12H PRN PO CONSTIPATION; Start 07/20/16 at 02:00 Naloxone HCl (Narcan Inj) 0.4 mg UNSCH PRN IV SEE LABEL COMMENTS; Start at 02:00 Morphine Sulfate (Morphine Inj) 2 mg Q3H PRN IV PUSH PAIN SCALE 5 TO 10 Last administered on 07/22/16 18:46; Start 07/20/16 at 02:45 Albuterol Sulfate (Albuterol Neb) 1.25 mg Q6HR NEB PRN NEB SHORTNESS OF BREATH ; Start 07/20/16 at 07:45 Budesonide/ Formoterol Fumarate (Symbicort 160-4.5 Inh) 1 puff Q12HR INH Last administered on 07/26/16 08:54; Start 07/20/16 at 09:00 Enalaprilat (Vasotec Inj) 1.25 mg Q8H PRN IV PUSH SBP> OR = 180, DBP> OR = 100 Last administered on 07/21/16 17:25; Start 07/21/16 at 07:45 Phenol 2 spray 2 spray Q2H PRN OROPHARYNG SORE THROAT Last administered on 07/21 18:53; Start 07/21/16 at 12:30 Potassium Chloride 20 meq/ Sodium Chloride 1,010 ml @ 100 mls/hr Q10H6M IV ; Start 07/25/16 at 01:53; Stop 07/25/16 at 01:53; Status DC Potassium Chloride/Sodium Chloride 1,000 ml @ 100 mls/hr Q10H IV Last administered on 07/26/16 02:00; Start 07/24/16 at 11:00 Potassium Chloride (KCl 20 Meq Premix Inj) 100 ml @ 50 mls/hr Q2H IV Last administered on 07/24/16 15:34; Start 07/24/16 at 14:30; Stop 07/24/16 at 18:29 ; Status DC Diatrizoate Meglum/ Diatrizoate Sod 240 ml 240 ml STK-MED ONCE NG ; Start at 14:28; Stop 07/24/16 at 14:29; Status DC Levofloxacin/ Dextrose 150 ml @ 100 mls/hr Q24H IV Last administered on 12:17; Start 07/25/16 at 11:00 Metronidazole (Flagyl 500 Mg Inj) 100 ml @ 100 mls/hr Q8H IV Last administered on 07/26/16 08:55; Start 07/25/16 at 10:00 A/P Assessment and Plan A/P Small bowel obstruction -NG tube has been removed. -diet advanced. -general surgery following. Leukocytosis - likely secondary to prednisone vs stress . -afebrile -started on levaquin and flagyl Mild renal insufficiency likely secondary to dehydration-improved. - IV fluid hydration as above - Avoid nephrotoxins hypernatremia; improved. Hypercalcemia, mild-resolved. mild hypokalemia; replaced. COPD with no exacerbation -resumed symbicort- albuterol as needed hypertension - monitor the BP trend -vasotec prn. -resume home meds when able to take PO. DVT prophylaxis - SCDs Discharge Planning dc home later this afternoon if tolerates the diet. see med list. f/u; pcp and surgery. d/w the patient and RN. Eva Devine MD Jul 26, 2016 10:47
--- NOTE | 2016-07-26 10:49 | HHI.DS ---
Discharge Summary Admission Date Jul 20, 2016 at 01:56 Discharge Date: Jul 26, 2016 Admitting Diagnosis small bowel obstruction, abdominal pain (1) Small bowel obstruction ICD Code: K56.69 Diagnosis: Principal (2) Leukocytosis ICD Code: D72.829 Diagnosis: Secondary (3) Acute renal insufficiency ICD Code: N28.9 Diagnosis: Secondary (4) Hypercalcemia ICD Code: E83.52 Diagnosis: Secondary (5) Diarrhea ICD Code: R19.7 Diagnosis: Secondary Procedures none Brief History - From Admission Mr. Hernandez is a 65-year-old male with a past medical history of COPD and hypertension who presented to the emergency room on 07/19/2016 complaining of severe abdominal pain and diarrhea. Abdomen/pelvis CT shows obstructing ventral hernia containing a loop of small bowel dilated and fluid-filled. The patient is seen in the emergency room. He states that he received antibiotics for COPD exacerbation last Sunday which made him dizzy. He was only able to take one dose of Levaquin. He followed up on Sunday and was placed on Cefdinir. He states that he has had diarrhea since being started on Cefzil. He describes the diarrhea as loose stools accompanied by abdominal cramping occurring more than 10 times per day; not watery. He reports accompanying nausea without vomiting, chills without fevers. He denies having blood in his stool. CBC/BMP: 07/25/16 0441 07/26/16 0451 Significant Findings Laboratory Tests Test 07/24/16 07/25/16 07/26/16 05:40 04:41 04:51 White Blood Count 15.6 TH/MM3 15.3 TH/MM3 (4.0-11.0) (4.0-11.0) Red Blood Count 4.05 MIL/MM3 4.18 MIL/MM3 (4.50-5.90) (4.50-5.90) Hemoglobin 12.0 GM/DL 12.1 GM/DL (13.0-17.0) (13.0-17.0) Hematocrit 35.6 % 36.8 % (39.0-51.0) (39.0-51.0) Neutrophils (%) (Auto) 84.4 % 80.2 % (16.0-70.0) (16.0-70.0) Lymphocytes (%) (Auto) 7.5 % (9.0-44.0) Neutrophils # (Auto) 13.2 TH/MM3 12.2 TH/MM3 (1.8-7.7) (1.8-7.7) Monocytes # (Auto) 1.1 TH/MM3 1.1 TH/MM3 (0-0.9) (0-0.9) Potassium Level 3.3 MEQ/L (3.5-5.1) Chloride Level 108 MEQ/L 113 MEQ/L 112 MEQ/L (98-107) (98-107) (98-107) Sodium Level 150 MEQ/L 147 MEQ/L (136-145) (136-145) Blood Urea Nitrogen 22 MG/DL (7-18) 20 MG/DL (7-18) Calcium Level 8.4 MG/DL (8.5-10.1) Imaging Last Impressions Abdomen X-Ray 07/24/16 0800 Signed Impressions: Service Date/Time: Sunday, July 24, 2016 08:55 - CONCLUSION: 1. Abnormal bowel gas pattern remains with increased loops of air-containing small bowel in the midabdomen. There is increased gas noted in the colon as well. 2. No evidence of free air. 3. The nasogastric tube remains in place. Royal Gross MD Small Bowel X-Ray 07/24/16 0000 Signed Impressions: Service Date/Time: Sunday, July 24, 2016 14:09 - CONCLUSION: Dilated loops of small bowel without evidence for complete obstruction. Contrast is noted within the large bowel. Abel Hawkins MD Abdomen/Pelvis CT 07/20/16 0000 Signed Impressions: Service Date/Time: July 01:05 - CONCLUSION: Anterior midline suprapubic ventral hernia similar to 2015 with the rectus diastases approximately 2.9 cm across. It contains a loop of small bowel. The small bowel proximal to the hernia is dilated and fluid-filled with a number of loops measuring 4.2 cm across. The exiting loop of small bowel is nondilated and non-fluid filled. The contents of the small bowel loop inside the hernia has more stool density concerning for obstruction. There is a tiny amount of fluid in the dependent portion of the hernia. The total hernia measures 5.0 x 5.1 cm across. There is not a significant amount of inflammation or bowel wall thickening to confirm bowel wall inflammation but the diameters of the small bowel within the peritoneal cavit is diagnostic for an obstructing hernia. Jhonatan Collins MD PE at Discharge GENERAL: This is a well-nourished, well-developed patient, in no apparent respiratory distress- NG tube in place. CARDIOVASCULAR: Regular rate and regular rhythm without murmurs, gallops, or rubs. RESPIRATORY: Clear to auscultation. Breath sounds equal bilaterally. No wheezes , rales, or rhonchi. GASTROINTESTINAL: Abdomen soft, non-tender, distended. active bowel sounds MUSCULOSKELETAL: Extremities without clubbing, cyanosis, or edema. NEURO: Alert & Oriented x4 to person, place, time, situation. Moves all ext x4 Hospital Course Small bowel obstruction -NG tube has been removed. -diet advanced. -general surgery following. Leukocytosis - likely secondary to prednisone vs stress . -afebrile -started on levaquin and flagyl Mild renal insufficiency likely secondary to dehydration-improved. - IV fluid hydration as above - Avoid nephrotoxins hypernatremia; improved. Hypercalcemia, mild-resolved. mild hypokalemia; replaced. COPD with no exacerbation -resumed symbicort- albuterol as needed hypertension - monitor the BP trend -vasotec prn. -resume home meds when able to take PO. DVT prophylaxis - SCDs Pt Condition on Discharge: Good Discharge Disposition: Discharge Home Discharge Time: <= 30 minutes Discharge Instructions DIET: Follow Instructions for: Heart Healthy Diet Activities you can perform: Regular-No Restrictions Follow up Referrals: PCP Follow-up Surgical Continued Medications: Albuterol Neb (Albuterol Neb) 2.5 Mg/0.5 Ml Neb 2.5 MG NEB ONCE Note: The Albuterol Sulfate Inhalation Solution is concentrated and must be diluted. Read complete instructions carefully before using. Breathing Treatment #1 Ref 0 NEBULE Aspirin (Aspirin) 81 Mg Tabdr 81 MG PO DAILY TAB Atenolol (Atenolol) 25 Mg Tab 25 MG PO DAILY Blood Pressure Management #30 TAB Budesonide-Formoterol Inh (Symbicort Inh) 160-4.5 Mcg/Act Aero 1 PUFF INH Q12HR #1 Ref 0 INHALER Prednisone (Prednisone) 10 Mg Tab 10 MG PO DAILY Ref 0 TAB Ranitidine (Zantac 75) 75 Mg Tab 75 MG PO DAILY Take 30 to 60 minutes before eating food or drinking beverages that cause heartburn. Heartburn Ref 0 TAB Discontinued Medications: Cefdinir (Cefdinir) 300 Mg Cap 300 MG PO BID Infection Ref 0 CAP Eva Devine MD Jul 26, 2016 10:49
--- NOTE | 2016-07-26 10:49 | HHI.DCPOC ---
Discharge Care Plan Diagnosis: (1) Small bowel obstruction Your Health Problems Are: Irregular Bowel Function Goals to Promote Your Health * To prevent worsening of your condition and complications * To maintain your health at the optimal level Directions to Meet Your Goals Take your medications as prescribed Follow your dietary instruction Follow activity as directed Keep your appointments as scheduled Take your immunizations and boosters as scheduled If your symptoms worsen call your PCP, if no PCP go to Urgent Care Center or Emergency Room Smoking is Dangerous to Your Health. Avoid second hand smoke Call the 24-hour hour crisis hotline for domestic abuse at Eva Devine MD Jul 26, 2016 10:48
[2016-07-26] MEDS: LEVOFLOXACIN 750 MG PREMIX INJ 150 ML IV SCH (11:00)
[2016-07-26 12:00] VITALS: BP 153/91; PULSE 87; RESP 17; TEMP 96.1; O2SAT 97
--- NOTE | 2016-07-26 12:55 | HHI.PR ---
Subjective Subjective Notes Denies pain. He wants to go home. Tolerated fulls well. Objective Vitals/I&O Vital Signs Date Time Temp Pulse Resp B/P Pulse Ox O2 Delivery O2 Flow Rate FiO2 07/26/16 12:00 96.1 87 17 153/91 97 07/23/16 10:00 21 07/22/16 20:40 Nasal Cannula 2.00 Labs Laboratory Tests Test 07/26/16 04:51 Sodium Level 147 Potassium Level 4.3 Chloride Level 112 Carbon Dioxide Level 26.6 Anion Gap 8 Blood Urea Nitrogen 20 Creatinine 0.83 Estimat Glomerular Filtration 92 Rate Random Glucose 96 Calcium Level 8.4 Radiology Last 24 hours Impressions Abdomen X-Ray 07/23/16 0800 Signed Impressions: Service Date/Time: Saturday, July 23, 2016 08:33 - CONCLUSION: 1. Dilated small bowel especially in the right upper quadrant. Some degree of obstruction needs to be considered. 2. NG tube in the upper stomach. Iván Mix MD Last Impressions Abdomen/Pelvis CT 07/20/16 0000 Signed Impressions: Service Date/Time: July 01:05 - CONCLUSION: Anterior midline suprapubic ventral hernia similar to 2015 with the rectus diastases approximately 2.9 cm across. It contains a loop of small bowel. The small bowel proximal to the hernia is dilated and fluid-filled with a number of loops measuring 4.2 cm across. The exiting loop of small bowel is nondilated and non-fluid filled. The contents of the small bowel loop inside the hernia has more stool density concerning for obstruction. There is a tiny amount of fluid in the dependent portion of the hernia. The total hernia measures 5.0 x 5.1 cm across. There is not a significant amount of inflammation or bowel wall thickening to confirm bowel wall inflammation but the diameters of the small bowel within the peritoneal cavit is diagnostic for an obstructing hernia. Jhonatan Collins MD Narrative Exam NAD Abd: soft, completely nontender. A/P Assessment and Plan 65 yo M chronically incarcerated suprapubic hernia now causing obstruction. Start regular diet. If tolerates regular lunch, I recommend d/c home. He should f/u with me in two weeks. We will discuss surgery further at that time. Wade Butcher MD Jul 26, 2016 12:55
== END 2016-07-26 14:23 | disposition home or self-care (01) | DRG 394 ==
LOC: NEPD 22:29 → NEDA 07-20 01:56 → NEPFCDU 07-20 03:23 → N07B 07-21 16:20
PROVIDERS: ADMIT Internal Medicine; ATTEND Internal Medicine
DX: K43.0 Incisional hernia with obstruction, without gangrene (principal); E87.0 Hyperosmolality and hypernatremia; E83.52 Hypercalcemia; J44.1 Chronic obstructive pulmonary disease with (acute) exacerbation; E78.00 Pure hypercholesterolemia, unspecified; E86.0 Dehydration; E87.6 Hypokalemia; I10 Essential (primary) hypertension; N28.9 Disorder of kidney and ureter, unspecified; Z79.82 Long term (current) use of aspirin
CPT/HCPCS: 74000; 74020; 74177; 74250; 76937; 80048; 80053; 81001; 83605; 83690; 85025; 87493; 87641; 94150; 96372; 96374; J0500; J1956; J2270; J2405; J3480; J7030; Q9963; Q9967

== ENCOUNTER 2016-09-12 20:42 | Emergency (ER) | payer MEDICARE ==
[~2016-09-12] VITALS: Ht 172.7 cm; Wt 72.5 kg
[~2016-09-12 20:42] MED LIST changes: +PRED10 PO; +SYMB160A INH
[2016-09-12 20:44] VITALS: BP 203/88; PULSE 86; RESP 18; TEMP 98.3; O2SAT 96
[2016-09-12] MEDS ORDERED: ASPI81CH CHEW (21:35)
[2016-09-12] MEDS ORDERED: IPRASOL INH (21:35)
[2016-09-12] MEDS ORDERED: ATEN25TA PO (21:35)
[2016-09-12 21:44] VITALS: O2SAT 97
--- NOTE | 2016-09-12 21:51 | PD ---
HPI Chief Complaint: Bleeding Time Seen by Provider: 21:48 Travel History International Travel<30 days: No Contact w/Intl Traveler<30days: No Traveled to known affect area: No History of Present Illness HPI 66-year-old male that presents to the ED for evaluation of hemoptysis for 2 months. Per patient she's has a history of COPD and she attributes this to the COPD. Per patient his been having multiple bouts of coughing. Per patient sometimes his been coughing some blood with mild specks but for the past 2 days his been coughing up more blood with his sputum. Per patient before used to be sputum with blood now is more blood in it. He denies any acute chest pain but he states that he has chronic left-sided chest pain on and off since childhood. Per patient he also chews this is his COPD. He states that he has chronic shortness of breath and his inhalers make it better but he denies any acute changes in shortness of breath. Denies any abdominal pain. Nausea or vomiting. He takes aspirin. Allergies to metoprolol. He has seen his doctor for this about a month ago and was told that everything looked okay. Per patient he is concerned because his been coughing more blood now that he used to. He denies any recent weight loss. He used to smoke heavily but quit 17 years ago. PFSH Past Medical History Hx Anticoagulant Therapy: Yes (ASA) Arthritis: No Asthma: No Blood Disorders: No Heart Rhythm Problems: Yes (HX OF PALPITATIONS) Cancer: No Cardiac Catheterization: No Cardiovascular Problems: Yes (HTN) High Cholesterol: Yes Chemotherapy: No Chest Pain: No Congestive Heart Failure: No COPD: Yes Cerebrovascular Accident: No Diabetes: No Endocrine: No Gastrointestinal Disorders: No Genitourinary: No Headaches: Yes Hypertension: Yes Immune Disorder: No Implanted Vascular Access Dvce: No Musculoskeletal: Yes Neurologic: Yes Psychiatric: No Reproductive: No Respiratory: Yes (COPD, ASTHMA) Immunizations Current: Yes Myocardial Infarction: No Radiation Therapy: No Seizures: No Sleep Apnea: No Thyroid Disease: No Past Surgical History Abdominal Surgery: Yes (PARTIAL COLON REMOVAL/bladder repair 2005) AICD: No Coronary Artery Bypass Graft: No Eye Surgery: Yes (RIGHT EYE CATARACT AUGUST 2014) Joint Replacement: No Pacemaker: No Other Surgery: Yes Family History Family Myocardial Infarction: No Social History Alcohol Use: No Tobacco Use: No Substance Use: No Allergies-Medications (Allergen,Severity, Reaction): Coded Allergies: Metoprolol (Verified Allergy, Intermediate, 09/12/16) heart palpitations *MDRO Multi-Drug Resistant Organism (Verified Adverse Reaction, Unknown, ) 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 HEAD: Atraumatic. Normocephalic. EYES: Pupils equal and round. No scleral icterus. No injection or drainage. ENT: No nasal bleeding or discharge. Mucous membranes pink and moist. Tongue is midline. No uvula deviation. Dentition: All of the teeth are completely eroded. NECK: Trachea midline. No JVD. CARDIOVASCULAR: Regular rate and rhythm. No murmurs, S3, S4. RESPIRATORY: No accessory muscle use. Clear to auscultation. Breath sounds equal bilaterally. GASTROINTESTINAL: Abdomen soft, non-tender, nondistended. Hepatic and splenic margins not palpable. MUSCULOSKELETAL: Extremities without clubbing, cyanosis, or edema. No obvious deformities. Full range of motion of the upper and lower extremities bilaterally. 2+ pulses bilaterally. NEUROLOGICAL: Awake and alert. No obvious cranial nerve deficits. Motor grossly within normal limits. Five out of 5 muscle strength in the arms and legs. Normal speech. PSYCHIATRIC: Appropriate mood and affect; insight and judgment normal. Data Data Last Documented VS Vital Signs Date Time Temp Pulse Resp B/P Pulse Ox O2 Delivery O2 Flow Rate FiO2 09/12/16 21:44 97 Room Air 09/12/16 20:44 98.3 86 18 203/88 Orders Electrocardiogram (09/12/16 21:40) Complete Blood Count With Diff (09/12/16 21:40) Comprehensive Metabolic Panel (09/12/16 21:40) Prothrombin Time / Inr (Pt) (09/12/16 21:40) Act Partial Throm Time (Ptt) (09/12/16 21:40) Urinalysis - C+S If Indicated (09/12/16 21:40) Magnesium (Mg) (09/12/16 21:40) Iv Access Insert/Monitor (09/12/16 21:40) Ecg Monitoring (09/12/16 21:40) Oximetry (09/12/16 21:40) Ct Thorax/ Chest W Iv Contrast (09/12/16 ) Labs Laboratory Tests Test 09/12/16 21:54 White Blood Count 11.5 TH/MM3 Red Blood Count 4.39 MIL/MM3 Hemoglobin 12.8 GM/DL Hematocrit 38.3 % Mean Corpuscular Volume 87.2 FL Mean Corpuscular Hemoglobin 29.2 PG Mean Corpuscular Hemoglobin 33.4 % Concent Red Cell Distribution Width 13.6 % Platelet Count 220 TH/MM3 Mean Platelet Volume 8.5 FL Neutrophils (%) (Auto) 57.0 % Lymphocytes (%) (Auto) 21.9 % Monocytes (%) (Auto) 8.5 % Eosinophils (%) (Auto) 12.1 % Basophils (%) (Auto) 0.5 % Neutrophils # (Auto) 6.6 TH/MM3 Lymphocytes # (Auto) 2.5 TH/MM3 Monocytes # (Auto) 1.0 TH/MM3 Eosinophils # (Auto) 1.4 TH/MM3 Basophils # (Auto) 0.1 TH/MM3 CBC Comment DIFF FINAL Differential Comment Prothrombin Time 10.2 SEC Prothromb Time International 0.9 RATIO Ratio Activated Partial 26.6 SEC Thromboplast Time Sodium Level 137 MEQ/L Potassium Level 4.1 MEQ/L Chloride Level 103 MEQ/L Carbon Dioxide Level 26.4 MEQ/L Anion Gap 8 MEQ/L Blood Urea Nitrogen 20 MG/DL Creatinine 0.84 MG/DL Estimat Glomerular Filtration 91 ML/MIN Rate Random Glucose 101 MG/DL Calcium Level 9.2 MG/DL Magnesium Level 2.4 MG/DL Total Bilirubin 0.2 MG/DL Aspartate Amino Transf 16 U/L (AST/SGOT) Alanine Aminotransferase 23 U/L (ALT/SGPT) Alkaline Phosphatase 68 U/L Total Protein 7.5 GM/DL Albumin 3.7 GM/DL [facility] Medical Decision Making Medical Screen Exam Complete: Yes Emergency Medical Condition: Yes Medical Record Reviewed: Yes Interpretation(s) CBC & BMP Diagram 09/12/16 21:54 coags WNL Differential Diagnosis Hemoptysis versus pneumonia versus bleeding versus COPD versus cancer Narrative Course 66-year-old male that presents to the ED for evaluation of coughing blood. Patient was properly examined and was found to have signs and symptoms of unclear etiology. Per patient his been going on for about 2 months but worse for the past 2 days. Labs and imaging ordered. Case discussed my attending Dr. Vigil who recommends doing CT. Labs showed slightly elevated WBC at 11, otherwise unremarcable. No sign of anemia. Case signed out to my attending pending CT and dispo. Xavier Ibrahim Sep 12, 2016 21:51
[2016-09-12 22:06] LABS: AUTOMATED NEUTROPHIL # 6.6 TH/MM3 (1.8-7.7); BASOPHIL # 0.1 TH/MM3 (0-0.2); BASOPHIL % 0.5 % (0.0-2.0); EOSINOPHIL # 1.4 TH/MM3 (0-0.4); EOSINOPHIL % 12.1 % (0.0-4.0); HEMATOCRIT 38.3 % (39.0-51.0); HEMO FLAGS DIFF FINAL; LYMPH % 21.9 % (9.0-44.0); LYMPHOCYTE # 2.5 TH/MM3 (1.0-4.8); MEAN CELL VOLUME 87.2 FL (80.0-100.0); MEAN CORPUSCULAR HEMOGLOBIN 29.2 PG (27.0-34.0); MEAN CORPUSCULAR HGB CONC 33.4 % (32.0-36.0); MONO % 8.5 % (0.0-8.0); PLATELET COUNT 220 TH/MM3 (150-450); RED BLOOD COUNT 4.39 MIL/MM3 (4.50-5.90); RED CELL DISTRIBUTION WIDTH 13.6 % (11.6-17.2); WHITE BLOOD COUNT 11.5 TH/MM3 (4.0-11.0)
[2016-09-12 22:20] LABS: INTERNATIONAL NORMALIZED RATIO 0.9 RATIO; PROTHROMBIN TIME - PATIENT 10.2 SEC (9.8-11.6)
[2016-09-12 22:21] LABS: ALT (GPT) 23 U/L (12-78); APTT (PATIENT) 26.6 SEC (24.3-30.1)
[2016-09-12 22:24] LABS: ALKALINE PHOSPHATASE 68 U/L (45-117); TOTAL BILIRUBIN ADULT 0.2 MG/DL (0.2-1.0)
[2016-09-12 22:28] LABS: ANION GAP 8 MEQ/L (5-15); AST (GOT) 16 U/L (15-37); BICARBONATE 26.4 MEQ/L (21.0-32.0); BLOOD UREA NITROGEN 20 MG/DL (7-18); CHLORIDE 103 MEQ/L (98-107); GLOMERULAR FILTRATION RATE 91 ML/MIN (>89); MAGNESIUM 2.4 MG/DL (1.5-2.5); POTASSIUM 4.1 MEQ/L (3.5-5.1); SODIUM (NA) 137 MEQ/L (136-145)
[2016-09-12] MEDS ORDERED: IOHEXOL 350 MG/ML 10 ML VIAL (for RAD DIAG) IV ONE (23:25)
--- NOTE | 2016-09-12 23:43 | RADRPT ---
EXAM DATE/TIME: 09/12/2016 23:21 [place] COMPARISON: No previous studies available for comparison. INDICATIONS : Hemoptysis. IV CONTRAST: 70 cc Omnipaque 350 (iohexol) IV RADIATION DOSE: 3.97 CTDIvol (mGy) MEDICAL HISTORY : Hypertension. Chronic obstructive pulmonary disease. Cardiovascular disease SURGICAL HISTORY : None. ENCOUNTER: Initial ACUITY: 1 day PAIN SCALE: 0/10 LOCATION: Bilateral chest TECHNIQUE: Volumetric scanning of the chest was performed. Using automated exposure control and adjustment of t he mA and/or kV according to patient size, radiation dose was kept as low as reasonably achievable to obtain optimal diagnostic quality images. FINDINGS: There are COPD changes with subpleural bleb in the right apex and adjacent scar. There is a cavitary mass in the lingula measures 2.6 cm in size. Coronary artery calcifications are seen typically seen w ith CAD and need to be evaluated clinically. There are atherosclerotic calcifications of the aorta du e to chronic atherosclerotic disease in addition to ulcerative plaquing . There is no pleural effusi on. No appreciable pathological adenopathy is seen within the mediastinum. CONCLUSION: Cavitary lung mass within lingula may be cavitary malignancy or could be due to old g ranulomatous infectious process or possibly a fungal infection and the appearance is nonspecific. Chiquita Siegel MD on September 12, 2016 at 23:37 Board Certified Radiologist. This report was verified electronically.
--- NOTE | 2016-09-13 00:17 | PD ---
Data Data Last Documented VS Vital Signs Date Time Temp Pulse Resp B/P Pulse Ox O2 Delivery O2 Flow Rate FiO2 09/12/16 21:44 97 Room Air 09/12/16 20:44 98.3 86 18 203/88 Orders Electrocardiogram (09/12/16 21:40) Complete Blood Count With Diff (09/12/16 21:40) Comprehensive Metabolic Panel (09/12/16 21:40) Prothrombin Time / Inr (Pt) (09/12/16 21:40) Act Partial Throm Time (Ptt) (09/12/16 21:40) Urinalysis - C+S If Indicated (09/12/16 21:40) Magnesium (Mg) (09/12/16 21:40) Iv Access Insert/Monitor (09/12/16 21:40) Ecg Monitoring (09/12/16 21:40) Oximetry (09/12/16 21:40) Ct Thorax/ Chest W Iv Contrast (09/12/16 ) Iohexol 350 Inj (Omnipaque 350 Inj) (09/12/16 23:25) Labs Laboratory Tests Test 09/12/16 21:54 White Blood Count 11.5 TH/MM3 Red Blood Count 4.39 MIL/MM3 Hemoglobin 12.8 GM/DL Hematocrit 38.3 % Mean Corpuscular Volume 87.2 FL Mean Corpuscular Hemoglobin 29.2 PG Mean Corpuscular Hemoglobin 33.4 % Concent Red Cell Distribution Width 13.6 % Platelet Count 220 TH/MM3 Mean Platelet Volume 8.5 FL Neutrophils (%) (Auto) 57.0 % Lymphocytes (%) (Auto) 21.9 % Monocytes (%) (Auto) 8.5 % Eosinophils (%) (Auto) 12.1 % Basophils (%) (Auto) 0.5 % Neutrophils # (Auto) 6.6 TH/MM3 Lymphocytes # (Auto) 2.5 TH/MM3 Monocytes # (Auto) 1.0 TH/MM3 Eosinophils # (Auto) 1.4 TH/MM3 Basophils # (Auto) 0.1 TH/MM3 CBC Comment DIFF FINAL Differential Comment Prothrombin Time 10.2 SEC Prothromb Time International 0.9 RATIO Ratio Activated Partial 26.6 SEC Thromboplast Time Sodium Level 137 MEQ/L Potassium Level 4.1 MEQ/L Chloride Level 103 MEQ/L Carbon Dioxide Level 26.4 MEQ/L Anion Gap 8 MEQ/L Blood Urea Nitrogen 20 MG/DL Creatinine 0.84 MG/DL Estimat Glomerular Filtration 91 ML/MIN Rate Random Glucose 101 MG/DL Calcium Level 9.2 MG/DL Magnesium Level 2.4 MG/DL Total Bilirubin 0.2 MG/DL Aspartate Amino Transf 16 U/L (AST/SGOT) Alanine Aminotransferase 23 U/L (ALT/SGPT) Alkaline Phosphatase 68 U/L Total Protein 7.5 GM/DL Albumin 3.7 GM/DL [facility] Supervised Visit with HARISH: Yes Narrative Course The history, exam, and medical decision-making in the associated mid-level provider note were completed with my assistance. I reviewed and agree with the findings presented. I attest that I had a [id number] encounter with the patient on the same day, and personally performed and documented my assessment and findings in the medical record. *My assessment and Findings: 66-year-old man, history of COPD and hypertension, presented with hemoptysis 2 months. Remote history of tobacco use. No constitutional symptoms weight loss or fevers. 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 Patient sees a rubber and pounder. We'll give him a copy of his CAT scan, recommend outpatient follow-up with pulmonology. Diagnosis Primary Impression: Lung mass Additional Instruction: Follow-up with your primary doctor in the next 3-5 days. Return to the emergency department for any worsening trouble breathing, or any other new or worsening symptoms. Disposition: 01 DISCHARGE HOME Condition: Stable Jhonatan Vigil MD Sep 13, 2016 00:17
--- NOTE | 2016-09-13 08:02 | EKG ---
Date Performed: 09/12/2016 Time Performed: 21:49:28 PTAGE: 66 years EKG: Sinus rhythm NORMAL ECG NO SIGNIFICANT CHANGE FROM PRIOR ELECTROCARDIOGRAM. PREVIOUS TRACING : 11/15/2014 12.25 DOCTOR: Jacques Kulkarni Interpretating Date/Time 09/13/2016 08:01:51
== END 2016-09-13 01:05 | disposition home or self-care (01) ==
LOC: NEPC 20:42
DX: R91.8 Other nonspecific abnormal finding of lung field (principal); J44.9 Chronic obstructive pulmonary disease, unspecified; I10 Essential (primary) hypertension; Z87.891 Personal history of nicotine dependence; Z79.899 Other long term (current) drug therapy
CPT/HCPCS: 71260; 80053; 83735; 85025; 85610; 85730; 93005; 99285; Q9967

== ENCOUNTER 2016-12-12 19:37 | Emergency (ER) | payer MEDICARE, OTHER ==
[~2016-12-12] VITALS: Ht 172.7 cm; Wt 75.0 kg
[~2016-12-12 19:37] MED LIST changes: -ALBU.5I NEB; -ASPI1TAB69 PO; +ASPI81CH CHEW; +IPRASOL INH; -ZANTTAB9 PO
[2016-12-12 19:45] VITALS: BP 146/97; PULSE 99; RESP 18; TEMP 98.7; O2SAT 98
[2016-12-12] MEDS ORDERED: FOLI800T PO (19:50)
[2016-12-12] MEDS ORDERED: MONT10TA2 PO (19:50)
[2016-12-12] MEDS ORDERED: SODIUM CHLORIDE 0.9% FLUSH 10 ML FLUSH IVF PRN (20:00)
[2016-12-12 20:12] VITALS: RESP 18; O2SAT 99
--- NOTE | 2016-12-12 20:18 | PD ---
HPI Chief Complaint: Cardiac Complaint Time Seen by Provider: 19:45 Travel History International Travel<30 days: No Contact w/Intl Traveler<30days: No Traveled to known affect area: No History of Present Illness HPI 66-year-old male presents to the emergency department for evaluation of palpitations. Patient states that he gives himself up a nebulizer treatment 3 times daily. He states that he normally gets a mild palpitations with his albuterol treatments, but it was worse today. He states that he felt like his heart was fluttering. He then checked his pulse and it was 45. That is when he decided to call 911. Patient has history of COPD, lung cancer, hypertension. He is currently receiving chemotherapy and radiation. He denies any chest pain. According to the nurse, EMS has had a heart rate of 100 since arriving at his house. The patient states that all symptoms have resolved and he now feels back to his normal self. No fevers or chills. No cough or congestion. No abdominal pain. No nausea, vomiting, diarrhea. PFSH Past Medical History Hx Anticoagulant Therapy: Yes (ASA) Arthritis: No Asthma: No Blood Disorders: No Heart Rhythm Problems: Yes (HX OF PALPITATIONS) Cancer: Yes (LUNG CANCER) Cardiac Catheterization: No Cardiovascular Problems: Yes (HTN) High Cholesterol: Yes Chemotherapy: Yes Chest Pain: No Congestive Heart Failure: No COPD: Yes Cerebrovascular Accident: No Diabetes: No Diminished Hearing: No Endocrine: No Gastrointestinal Disorders: No Genitourinary: No Headaches: Yes Hypertension: Yes Immune Disorder: No Implanted Vascular Access Dvce: No Musculoskeletal: Yes Neurologic: Yes Psychiatric: No Reproductive: No Respiratory: Yes (COPD, ASTHMA) Immunizations Current: Yes Myocardial Infarction: No Radiation Therapy: Yes Seizures: No Sleep Apnea: No Thyroid Disease: No Tetanus Vaccination: Unknown Influenza Vaccination: Yes Past Surgical History Abdominal Surgery: Yes (PARTIAL COLON REMOVAL/bladder repair 2005) AICD: No Coronary Artery Bypass Graft: No Eye Surgery: Yes (RIGHT EYE CATARACT AUGUST 2014) Joint Replacement: No Pacemaker: No Other Surgery: Yes Social History Alcohol Use: No Tobacco Use: No Substance Use: No Allergies-Medications (Allergen,Severity, Reaction): Coded Allergies: metoprolol (Unverified Allergy, Intermediate, 12/12/16) heart palpitations *MDRO Multi-Drug Resistant Organism (Verified Adverse Reaction, Unknown, ) 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 Afebrile. SKIN: Focused skin assessment warm/dry. HEAD: Normocephalic. Atraumatic. EYES: No scleral icterus. No injection or drainage. NECK: Supple, trachea midline. No JVD or lymphadenopathy. CARDIOVASCULAR: Regular rate and rhythm without murmurs, gallops, or rubs. RESPIRATORY: Breath sounds equal bilaterally. No accessory muscle use. Lungs sounds are clear to auscultation. GASTROINTESTINAL: Abdomen soft, non-tender, nondistended. MUSCULOSKELETAL: No cyanosis, or edema. BACK: Nontender without obvious deformity. No CVA tenderness. Data Data Last Documented VS Vital Signs Date Time Temp Pulse Resp B/P (MAP) Pulse Ox O2 Delivery O2 Flow Rate FiO2 12/12/16 21:07 92 18 130/69 (89) 97 Room Air 12/12/16 19:45 98.7 Orders Orders Electrocardiogram (12/12/16 19:57) Basic Metabolic Panel (Bmp) (12/12/16 19:57) Ckmb (Isoenzyme) Profile (12/12/16 19:57) Complete Blood Count With Diff (12/12/16 19:57) Magnesium (Mg) (12/12/16 19:57) Prothrombin Time / Inr (Pt) (12/12/16 19:57) Act Partial Throm Time (Ptt) (12/12/16 19:57) Troponin I (12/12/16 19:57) Chest, Single Ap (12/12/16 19:57) Ecg Monitoring (12/12/16 19:57) Bilateral Bp Monitoring (12/12/16 19:57) Iv Access Insert/Monitor (12/12/16 19:57) Oximetry (12/12/16 19:57) Oxygen Administration (12/12/16 19:57) Sodium Chloride 0.9% Flush (Ns Flush) (12/12/16 20:00) Labs Laboratory Tests Test 12/12/16 20:10 White Blood Count 4.8 TH/MM3 Red Blood Count 3.51 MIL/MM3 Hemoglobin 10.5 GM/DL Hematocrit 30.5 % Mean Corpuscular Volume 87.0 FL Mean Corpuscular Hemoglobin 30.0 PG Mean Corpuscular Hemoglobin Concent 34.5 % Red Cell Distribution Width 13.7 % Platelet Count 79 TH/MM3 Mean Platelet Volume 7.5 FL Neutrophils (%) (Auto) 73.9 % Lymphocytes (%) (Auto) 11.5 % Monocytes (%) (Auto) 13.1 % Eosinophils (%) (Auto) 1.3 % Basophils (%) (Auto) 0.2 % Neutrophils # (Auto) 3.6 TH/MM3 Lymphocytes # (Auto) 0.6 TH/MM3 Monocytes # (Auto) 0.6 TH/MM3 Eosinophils # (Auto) 0.1 TH/MM3 Basophils # (Auto) 0.0 TH/MM3 CBC Comment AUTO DIFF Differential Comment AUTO DIFF CONFIRMED Platelet Estimate LOW Platelet Morphology Comment NORMAL Prothrombin Time 10.3 SEC Prothromb Time International Ratio 0.9 RATIO Activated Partial Thromboplast Time 26.5 SEC Blood Urea Nitrogen 17 MG/DL Creatinine 0.86 MG/DL Random Glucose 100 MG/DL Calcium Level 8.9 MG/DL Magnesium Level 2.1 MG/DL Sodium Level 135 MEQ/L Potassium Level 3.6 MEQ/L Chloride Level 100 MEQ/L Carbon Dioxide Level 24.8 MEQ/L Anion Gap 10 MEQ/L Estimat Glomerular Filtration Rate 89 ML/MIN Total Creatine Kinase 81 U/L Troponin I LESS THAN 0.02 NG/ML MDM Medical Decision Making Medical Screen Exam Complete: Yes Emergency Medical Condition: Yes Medical Record Reviewed: Yes Interpretation(s) Last Impressions Chest X-Ray 12/12/161956 Signed Impressions: Service Date/Time: Monday, December 12, 2016 20:10 - CONCLUSION: No acute cardiopulmonary disease demonstrated radiographically. Iván Sanders MD Differential Diagnosis cardiac arrhythmia vs. electrolyte abnormality vs. dehydration Narrative Course 66-year-old male presents to the emergency department for evaluation palpitations while receiving an albuterol nebulizer treatment today, worse than normal. He states that then his pulse went down to 45. On my exam, heart rate is between 90 and 100, which patient states is baseline. He denies any previous or current chest pain. No shortness of breath. No other complaints. EKG, CBC, BMP, CK, troponin, magnesium, PT, PTT/INR, chest x-ray are ordered and pending. EKG shows sinus rhythm, heart rate 93, no acute ST changes. CBC shows slight anemia hemoglobin 10.5, hematocrit 30.5, platelets of 79. BMP shows no acute abnormality. CK is 81. Troponin is less than 0.02. Magnesium is 2.1. Coags are unremarkable. Chest x-ray shows No acute cardiopulmonary disease demonstrated radiographically. The patient has remained asymptomatic in the emergency department. He has no complaints at this time. I instructed to follow-up with his primary care physician. He is to return here for any acute worsening of symptoms. He verbalizes agreement and understanding. The patient was discharged in stable condition with instructions, including return instructions and follow up instructions. Diagnosis Primary Impression: Intermittent palpitations Referrals: Primary Care Physician call for appointment Patient Instructions: General Instructions, Heart Palpitations (ED) Additional Instructions: Follow-up with your primary care physician. Return to the emergency department for any acute worsening of symptoms. Med/Other Pt SpecificInfo: No Change to Meds Disposition: 01 DISCHARGE HOME Condition: Stable Mary Lisa PRICILLA Dec 12, 2016 20:18
--- NOTE | 2016-12-12 20:32 | RADRPT ---
EXAM DATE/TIME: 12/12/2016 20:10 [facility] COMPARISON: CHEST SINGLE AP, November 15, 2014, 9:40. CT THORAX W CONTRAST, September 12, 2016, 23:21. INDICATIONS : Short of breath and rapid heart beat. MEDICAL HISTORY : Carcinoma, lung. Hypertension Chronic obstructive pulmonary disease. SURGICAL HISTORY : Infusaport. ENCOUNTER: Initial ACUITY: 1 day PAIN SCORE: 0/10 LOCATION: Bilateral chest FINDINGS: No infiltrate, effusion or pneumothorax seen. No perceptible recurrent or residual lung mass. A graft heart size stable, within normal limits. There is a right internal jugular [id number] catheter with tip in the superior vena cava. CONCLUSION: No acute cardiopulmonary disease demonstrated radiographically. Iván Sanders MD on December 12, 2016 at 20:30 Board Certified Radiologist. This report was verified electronically.
[2016-12-12 20:42] LABS: AUTOMATED NEUTROPHIL # 3.6 TH/MM3 (1.8-7.7); BASOPHIL % 0.2 % (0.0-2.0); EOSINOPHIL # 0.1 TH/MM3 (0-0.4); EOSINOPHIL % 1.3 % (0.0-4.0); HEMATOCRIT 30.5 % (39.0-51.0); LYMPH % 11.5 % (9.0-44.0); LYMPHOCYTE # 0.6 TH/MM3 (1.0-4.8); MEAN CORPUSCULAR HGB CONC 34.5 % (32.0-36.0); MONO % 13.1 % (0.0-8.0); NEUT % 73.9 % (16.0-70.0); PLATELET COUNT 79 TH/MM3 (150-450); RED BLOOD COUNT 3.51 MIL/MM3 (4.50-5.90); RED CELL DISTRIBUTION WIDTH 13.7 % (11.6-17.2); WHITE BLOOD COUNT 4.8 TH/MM3 (4.0-11.0)
[2016-12-12 20:48] LABS: APTT (PATIENT) 26.5 SEC (24.3-30.1); INTERNATIONAL NORMALIZED RATIO 0.9 RATIO; PROTHROMBIN TIME - PATIENT 10.3 SEC (9.8-11.6)
[2016-12-12 20:49] LABS: HEMO FLAGS AUTO DIFF
[2016-12-12 20:55] LABS: ANION GAP 10 MEQ/L (5-15); BICARBONATE 24.8 MEQ/L (21.0-32.0); BLOOD UREA NITROGEN 17 MG/DL (7-18); CHLORIDE 100 MEQ/L (98-107); GLOMERULAR FILTRATION RATE 89 ML/MIN (>89); MAGNESIUM 2.1 MG/DL (1.5-2.5); POTASSIUM 3.6 MEQ/L (3.5-5.1); SODIUM (NA) 135 MEQ/L (136-145)
[2016-12-12 21:07] VITALS: BP 130/69; PULSE 92; RESP 18; O2SAT 97
[2016-12-12 21:07] LABS: CREATINE KINASE 81 U/L (39-308)
[2016-12-12 21:42] LABS: PLATELET ESTIMATE SMEAR LOW (NORMAL); PLATELET MORPHOLOGY NORMAL (NORMAL); SCAN/DIFF AUTO DIFF CONFIRMED
--- NOTE | 2016-12-13 21:34 | EKG ---
Date Performed: 12/12/2016 Time Performed: 20:16:33 PTAGE: 66 years EKG: Sinus rhythm NORMAL ECG PREVIOUS TRACING : 09/12/2016 21.49 Compared to prior tracing no significant change DOCTOR: Soren Dong Interpretating Date/Time 12/13/2016 21:31:40
== END 2016-12-12 22:20 | disposition home or self-care (01) ==
LOC: NEPE 19:37
DX: R00.2 Palpitations (principal); J44.9 Chronic obstructive pulmonary disease, unspecified; I10 Essential (primary) hypertension; J45.909 Unspecified asthma, uncomplicated; Z85.118 Personal history of other malignant neoplasm of bronchus and lung; Z79.82 Long term (current) use of aspirin; Z79.899 Other long term (current) drug therapy
CPT/HCPCS: 71010; 80048; 82550; 83735; 84484; 85025; 85610; 85730; 93005; 99285